=== PATIENT | female | born 1945 | race Caucasian/White ===

== ENCOUNTER 2017-02-24 00:11 | Inpatient (IN) | payer MEDICARE ==
[~2017-02-24] VITALS: Ht 160 cm; Wt 76.1 kg
[~2017-02-24 00:11] MED LIST: ACETAMINOPHEN500 M1 PO; ARTIFICIAL TEAR15 ML EACH EYE; CELEBREX200 MG PO; CLONAZEPAM2 MG/TAB OR; DEPAKOTE250 MG PO; ESGIC TABLET1 TAB OR; ESGIC TABLET1 TAB PO; HALCION0.25 MG; HYDROCODONE-APA1 TAB PO; KLONOPIN1 MG PO; LEXAPRO20 MG PO; LOVENOX40 MG/0.4 SQ; MULTIPLE VITAMI1 TA1 PO; MYRBETRIQ50 MG PO; NORCO 10/325 TA1 TA1 PO; NS 0.9% IV; PROTONIX40 MG PO; ROBAXIN500 MG OR; ROBAXIN500 MG PO; TOPAMAX100 MG PO; ULTRAM50 MG OR; ULTRAM50 MG PO; XALATAN 0.0052.5 ML EACH EYE; XANAX1 MG PO; ZITHROMAX250 MG PO; [UNRECOGNIZED DRUG - OTHER] IV
[2017-02-24 01:07] LABS: BASOPHILS 0 % (0-2); EOSINOPHILS 1.2 % (0-7); HEMATOCRIT 41.8 % (36.0-48.0); IMMATURE GRANULOCYTES 0.1 % (0-5); LYMPHOCYTES 7.7 % (15-50); MCHC 31.1 g/dL (31.0-37.0); MEAN PLATELET VOLUME 9.2 fL (7.4-10.4); MONOCYTES 5.5 % (2-11); NEUTROPHILS 85.5 % (40-80); RBC 4.06 10x6/uL (4.00-5.40); RDW 11.9 % (11.5-14.5); WBC 9.1 10x3/uL (4.8-10.8)
[2017-02-24 01:10] LABS: PLATELET COUNT 179 10x3/uL (130-400)
[2017-02-24 01:26] LABS: ANION GAP 13.9 mmol/L (8-16); BILIRUBIN - TOTAL 0.34 mg/dL (0.2-1.3); CALCIUM 9.1 mg/dL (8.5-10.1); CARBON DIOXIDE 29.2 mmol/L (21.0-32.0); CREATININE - SERUM 0.9 mg/dL (0.6-1.3); POTASSIUM - SERUM 4.1 mmol/L (3.5-5.1); PROTEIN - SERUM 7.4 g/dL (6.4-8.2)
[2017-02-24 01:54] LABS: APPEARANCE CLEAR (CLEAR); BILIRUBIN NEGATIVE (NEGATIVE); COLOR YELLOW (YELLOW); GLUCOSE 50 mg/dL (NEGATIVE); KETONE NEGATIVE (NEGATIVE); NITRITE NEGATIVE (NEGATIVE); PROTEIN TRACE mg/dL (NEGATIVE); SPECIFIC GRAVITY 1.015 (1.005-1.020); UROBILINOGEN NORMAL (NORMAL)
[2017-02-24 01:55] LABS: BACTERIA NONE SEEN /hpf (NONE SEEN); EPITHELIAL CELLS 0-5 /hpf (0-5); RED CELLS - URINE 0-5 /hpf (0-5); WHITE CELLS - URINE 0-5 /hpf (0-5)
--- NOTE | 2017-02-24 05:52 | NUR ---
SPOKE WITH Thotz IN REGARDS TO TELE ORDER. GIO STATED HE WILL CHECK WITH HIS CHARGE NURSE AND LET ME KNOW IF THEY HAVE ONE AVAILABLE
[2017-02-24 06:55] VITALS: BP 149/70; BMI 22.1
--- NOTE | 2017-02-24 08:17 | NUR ---
AWAKE AND ALERT. ORIENTED X3. NO C/O AT THIS TIME. LUNGS ARE CLEAR BILATERALLY, NO COUGH NOTED. SKIN IS INTACT WITHOUT REDNESS. SL TO LEFT WRIST IS PATENT WITHOUT REDNESS AT INSERTION SITE. NG TO LEFT NARE IS PATENT WITH SCANT GREENISH OUTPUT. AT BEDSIDE. DENIES NEEDS.
[2017-02-24 08:25] VITALS: BP 141/73
--- NOTE | 2017-02-24 09:30 | NUR ---
BOLUS INITIATED PER ORDERS. CRECHE ATTENDANT EXPLAINED TO BOTH PATIENT AND FAMILY. ALL QUESTIONS ANSWERED. REITERATED NOTHING BY MOUTH NOT EVEN ICE OR WATER.
[2017-02-24 10:16] LABS: APTT 20.5 SECONDS (22.8-39.4); INR 0.98 (0.85-1.17); PROTIME 12.9 SECONDS (11.6-15.0)
--- NOTE | 2017-02-24 11:20 | NUR ---
FOUND UNRESPONSIVE AND FEBRILE. FAMILY IN ROOM. DR STEWART NOTIFIED. NEW ORDERS RECEIVED. PATIENT PACKED IN ICE AND COVERS OFF.
--- NOTE | 2017-02-24 11:40 | NUR ---
DR. TORRES HERE. NEW ORDERS RECEIVED. PATIENT CONTINUES POST ICTAL. WILL CONTINUE TO MONITOR.
[2017-02-24 11:53] VITALS: BP 162/72
[2017-02-24 12:15] VITALS: Ht 160 cm; Wt 76.1 kg
--- NOTE | 2017-02-24 12:32 | NUR ---
TEMP 99.0 AT THIS TIME. INCONTINENT OF URINE. SKIN CARE PER FAMILY.
[2017-02-24 15:45] VITALS: BP 100/56
--- NOTE | 2017-02-24 17:21 | NUR ---
DR TORRES AWARE OF ELEVATED AMMONIA. NEW ORDERS TO REDRAW IN AM.
[2017-02-24 20:00] VITALS: BP 111/56
--- NOTE | 2017-02-24 23:48 | NUR ---
REC'D.AT [facility]. OF SHIFT.LYING ON RIGHT SIDE.NG TUBE IN PLACE TO LOW INTERMITT.DK. BROWNISH COLORED EMESIS,DENIES ANY PAIN AT PRESENT TIME.WILL CONTINUE TO MONITOR FOR ANY CHGES. IN ABD. STATUS AND FOWWLOW CURRENT ROB OF CARE.
[2017-02-25] VITALS: BP 110/62
[2017-02-25 05:10] LABS: BASOPHILS 0 % (0-2); EOSINOPHILS 0 % (0-7); HEMATOCRIT 33.6 % (36.0-48.0); HEMOGLOBIN 10.5 g/dL (12-16); IMMATURE GRANULOCYTES 0.2 % (0-5); LYMPHOCYTES 12.9 % (15-50); MCHC 31.3 g/dL (31.0-37.0); MCV 102.4 fL (80.0-100.0); MEAN PLATELET VOLUME 9.7 fL (7.4-10.4); MONOCYTES 3.2 % (2-11); NEUTROPHILS 83.7 % (40-80); RBC 3.28 10x6/uL (4.00-5.40); RDW 12.5 % (11.5-14.5)
[2017-02-25 05:17] LABS: PLATELET COUNT 119 10x3/uL (130-400); WBC 5.6 10x3/uL (4.8-10.8)
[2017-02-25 05:32] LABS: CALCIUM 7.7 mg/dL (8.5-10.1); CARBON DIOXIDE 22.7 mmol/L (21.0-32.0); CREATININE - SERUM 0.8 mg/dL (0.6-1.3); POTASSIUM - SERUM 3.7 mmol/L (3.5-5.1)
--- NOTE | 2017-02-25 08:06 | NUR ---
0700)ENTERED RM.NOTICED ROVING WINDER LOCKED OUT. ASKED SITTING AT BEDSIDE HAVE YOU BEEN PUSHING PAIN BUTTON? 'STATES MY DTR. SAYS PUSH IT EVERY TIME SHE HURTS. EXPLAINED SHE CAN GET INTO SOME SERIOUS RESP. ISSUES BY DOING THAT.STATES IF SHE HURTS I'M GONNA PUSH IT.15MIN. LATER RESP.ENTERED RM. FOR UPDRAFT.FOUND 02 OFF SATS 64%. 100% REBREATHER ON SAT% ONLY INCREASED TO 77%. RAPID RESPONSE CALLED.NARCAN GIVEN PER ROGERS AGUERO. SUCTIONED.ORALLY WITH PIYUSH.BED ELEVATED 40%.ROVING WINDER MORPHINE DISCONTINUED.WILL CONTINUE TO MONITOR FOR ANY CHGES. AND FOLLOW CURRENT PLAN OF CARE.
--- NOTE | 2017-02-25 08:30 | NUR ---
RECIEVED PT FROM FOUNDING PARTNER NURSE AT BEDSIDE AFTER RAPID RESPONSE CALLED DUE TO PT NOT RESPONDING. PT RESPONSIVE AND ALERT AT THIS TIME. ASSESSMENT DONE PER FLOWSHEET. BED IN LOW POSITION AND CALL LIGHT WITHIN REACH. WILL CONTINUE TO MONITOR.
--- NOTE | 2017-02-25 13:42 | NUR ---
Patient Name: KIMBERLEE EDMONDS Admission Status: ER Accout number: [id number] Admission Date: 02-24-2017 : 1945 Admission Diagnosis:ACUTE PANCREATITIS WITHOUT NECROSIS OR INFECTION, UNSP Attending: PLACIDO STEWART Current LOS: 1 Anticipated DC Date: 02-27-2017 Planned Disposition: Home Primary Insurance: [employer]ARE ADV Discharge Planning Comments: CM MET WITH PATIENT AND SPOUSE (PLACIDO EDMONDS) REGARDING D/C NEEDS AND PLANS. PATIENTS SPOUSE STATED HE WILL DRIVE PATIENT HOME AT DISCHARGE. THERE ARE 2 STEPS TO ENTER HOME AND 1 FLIGHT INSIDE. (PATIENT DOES NOT USE STAIRS) PATIENT USES A WALKER AND ALSO HAS A WHEELCHAIR, SHOWER CHAIR, BS COMMODE, AND CANE AT HOME. PATIENTS PCP IS DR. SEVILLA AND PAHRAMCY IS [place]ACH[place]ossein. SPOUSE STATED HOME HEALTH IS NOT NEEDED. CM WILL CONTINUE TO FOLLOW PATIENT WITH D/C NEEDS AND PLANS. PCP DR. SEVILLA [facility]- [phone] PLACIDO EDMONDS (SPOUSE) [phone] Social Security Specialist: Dinah Peña Is the patient Alert and Oriented? Yes 0 * How many steps to enter\exit or inside your home? 2 0 * PCP DR. SEVILLA 0 * [facility] * Preadmission Environment Home with Family 0 * ADLs Partial Dependent 0 * Partial ADLs (Assistance needed) Ambulation Medication Management Transfers 0 * Equipment Bedside Commode Cane Shower Chair Walker Wheelchair 0 * List name and contact numbers for known caregivers / representatives who currently or will assist patient after discharge: PLACIDO EDMONDS [phone] * Community resources currently utilized None 0 * Additional services required to return to the preadmission environment? Yes 0 * Can the patient safely return to the preadmission environment? Yes 0 * Has this patient been hospitalized within the prior 30 days at any hospital? No 0 Grand Total: 0
[2017-02-25 20:00] VITALS: BP 139/70
--- NOTE | 2017-02-25 23:06 | NUR ---
REC'D. AT [facility]. OF SHIFT.IN BED HOB UP 35 DEGREES.ON RIGHT SIDE. DTR. AT BEDSIDE REQUESTING MORPHINE DISCUSSED WITH DRT.MOTHER IS RESTING QUIETLY DOESN'T APPEAR TO BE IN ANY PAIN. STATES ONLY HAD SOME ONCE TODAY.DON'T YOU THINK SHE NEEDS SOME? INSTRUCTED NOT LONG SHE APPEARS TO BE RESTING COMFORTABLLY.INSTRUCTED DON'T WANT TO HAVE A REPEAT OF THIS MORNING.IF START TO APPEARS TO BE UNCOMFORTABLE WILL BE MORE THAN HAPPY TO GIVE HER SOMETHING VOICES UNDERSTANDINGSATS 91%. WILL CONTINUE TO MONITOR AND FOLLOW CURRENT PLAN OF CARE.
--- NOTE | 2017-02-25 23:53 | NUR ---
EYES CLOSED RESPIRATIONS WITH EASE AND UNLABORED.
[2017-02-26] VITALS (18 sets, daily range): BP systolic 96–185; BP diastolic 69–98
[2017-02-26 05:16] LABS: BASOPHILS 0 % (0-2); EOSINOPHILS 0 % (0-7); HEMATOCRIT 32.1 % (36.0-48.0); HEMOGLOBIN 10.2 g/dL (12-16); IMMATURE GRANULOCYTES 0.5 % (0-5); LYMPHOCYTES 10.5 % (15-50); MCHC 31.8 g/dL (31.0-37.0); MCV 100.6 fL (80.0-100.0); MONOCYTES 4.7 % (2-11); NEUTROPHILS 84.3 % (40-80); PLATELET COUNT 120 10x3/uL (130-400); RBC 3.19 10x6/uL (4.00-5.40); RDW 12.4 % (11.5-14.5); WBC 5.5 10x3/uL (4.8-10.8)
[2017-02-26 05:38] LABS: ALBUMIN 2.4 g/dL (3.4-5.0); ANION GAP 12.7 mmol/L (8-16); BILIRUBIN - TOTAL 0.69 mg/dL (0.2-1.3); CALCIUM 7.4 mg/dL (8.5-10.1); CARBON DIOXIDE 23.6 mmol/L (21.0-32.0); CREATININE - SERUM 0.8 mg/dL (0.6-1.3); MAGNESIUM - SERUM 2.1 mg/dL (1.8-2.4); POTASSIUM - SERUM 3.3 mmol/L (3.5-5.1); PROTEIN - SERUM 5.7 g/dL (6.4-8.2)
--- NOTE | 2017-02-26 08:56 | NUR ---
AWAKE AND ALERT. ORIENTED X3. RESPONDS APPROPRIATELY TO YES/NO QUESTIONS. LUNGS ARE CLEAR BILATERALLY, NO COUGH NOTED. SKIN IS INTACT WITHOUT REDNESS.INCONTINENT OF LOOSE WATERY LIGHT BROWN STOOL. SKIN CARE PER STAFF. .LINENS CHANGED. REPOSITIONED FOR COMFORT. NG TO LEFT NARE D/C WITHOUT DIFFICULTY. FL DIET TRAY SERVED. IV TO LEFT FOREARM PATENT WITHOUT REDNESS AT INSERTION SITE. DENIES NEEDS.
--- NOTE | 2017-02-26 10:00 | NUR ---
UNABLE TO MAINTAIN SATS MORE THAN 92%. AT 82% ON NONREBREATHER. ORDERS TO TRANSFER TO ICU RECEIVED. REPORT CALLED TO CATHERINE AGUERO. PATIENT TRANSFERRED VIA BED TO ROOM 2303. FAMILY AT BEDSIDE.
--- NOTE | 2017-02-26 10:08 | NUR ---
Rehab Note- Acute Prescreen order received. The patient has [employer] Insurance and will require a PreAuth prior to an inpatient acute rehab stay. Will need an OT eval also for PreAuth. Will also see if the patient is able to participate with PT. Will follow at this time. Thank you for this referral! Gloria iSmeon RN Clinical Liaison, [facility] Rehab
[2017-02-26 10:25] LABS: VALPROIC ACID (DEPAKOTE) 50.2 ug/mL (50.0-100.0)
--- NOTE | 2017-02-26 10:37 | NUR ---
1010 PT RECIEVED FROM FLOOR VIA BED.. PT IS AWAKE BUT DOES NOT RESPOND APPROPRIATLY TO COMMANDS OR QUESTIONS.. 100% NON REBREATHER O2 DELIVERY ON PT ON ARRIVAL AND PT IS TRYING TO TAKE MASK OFF.. RESPIRATORY THERAPY AT BEDSIDE.. PT HAS HAD A LIQUID SERVIN BROWN BM IN CONTINTENET IN THE BED.. PT CLEANED AT THIS TIME.. THERE IS A PIV IN THE LET WRIST WITH NS INFUSING PLACED ON IVAC AT 125 CC/HR 1030 FAMILY IN TO SEE PT UPDATE GIVEN DR GARCIA IN UNIT AND PT IS PLACED ON BIPAP O2 AT 60% RESPIRATIONS ARE 60 O2SAT IS 92% 1040 DR TORRES IN TO SEE PT AND SPEAKING WITH DR GARCIA AT THE BEDSIDE.. 10[address] GARCIA IS ORDERING LASIX.. 1100 LAB IN TO DRAW BLOOD..
--- NOTE | 2017-02-26 10:44 | NUR ---
NUTRITION F/U CHART REVIEWED. PT MOVED TO ICU S/P RR. FULL LIQUID DIET STARTED. WILL CONTINUE TO MONITOR PT PROGRESS, DIET ADVANCEMENT. RD FOLLOWING
--- NOTE | 2017-02-26 10:57 | NUR ---
1045 IV FLUID IN FUSING AT 125CC/HR ON ARRIVAL RATE CHANGED TO 50CC AT THIS TIME..
[2017-02-26 11:45] LABS: CREATINE KINASE 227 UL (21-215)
[2017-02-26 11:47] LABS: TROPONIN-I 0.597 ng/mL (0.000-0.060)
[2017-02-26 11:49] LABS: CKMB 3.2 U/L (0.0-3.6)
--- NOTE | 2017-02-26 18:08 | NUR ---
1115 PTS FAMILY IN TO SEE PT.. UPDATE IS GIVEN PT CONTINUES OBTUNDED AND POLACED ON BIPAP O2 AT THIS TIME SHE CONTINUES TO BREATH 50-60 BPM.. SAT IS BETTER ON BIPAP O2 .. 1200 FAMILY AT THE PT BEDSIDE PT IS HAVING INCONTINENT STOOLS LIQUID SERVIN COLORED FAMILY STATES THAT SHE HAS BEEN TAKING LACTULOSE.. PT IS NOT APPROPRIATE IN RESPONSES TO COMMANDS... 1400 NO CHANGES IN PT AT THIS TIME.. 1600 FAMILY IN TO SEE PT.. UPDATE GIVEN.. 1700 INCONTINENT OF STOOL.. PT CLEANED AND BUTT BALM APPLIED 1800 FAMILY GONE FROM THE BEDSIDE
--- NOTE | 2017-02-26 19:00 | NUR ---
REPORT REC'D, PATIENT CARE ASSUMED. ASSESSMENT COMPLETED. SEE FLOW SHEETS FOR ALL FINDINGS. PT ON BIPAP AWAKE, NODES HEAD FOR YES/NO QUESTIONS, RESTLESS, TRYING TO PULL OFF BIPAP. REORIENTED AND EXPLAINED THE NEED TO KEEP ON THE MASK. RR TO 50. RT AT BEDSIDE. BIPAP MASK REAJUSTED.SR ON CM. LUNG SOUNDS DININISHED TO ALL VELA. REPOSITIONED FOR COMFORT. HOB UP, SIDE RAILS UP. WILL CONT TO MONITOR.
--- NOTE | 2017-02-26 21:00 | NUR ---
FAMILY AT BEDSIDE, UPDATED AND QUESTIONS ANSWERED.
--- NOTE | 2017-02-26 23:00 | NUR ---
REASSESSMENT COMPLETED. SEE FLOW SHEETS FOR ALL FINDINGS. PT AWAKE EASILY WITH VOICES, NODES HEAD FOR YES/NO QUESTIONS. CONT ON BIPAP. REORIENTED. CONT TO MONITOR.
[2017-02-27] VITALS (24 sets, daily range): BP systolic 133–173; BP diastolic 68–101
--- NOTE | 2017-02-27 01:00 | NUR ---
PT RESTING QUIETLY. NO NEEDS VOICES AT THIS TIME. CALL LIGHT IN REACH. CPOC
[2017-02-27 06:12] LABS: BASOPHILS 0.1 % (0-2); EOSINOPHILS 0 % (0-7); HEMATOCRIT 34.3 % (36.0-48.0); HEMOGLOBIN 10.7 g/dL (12-16); IMMATURE GRANULOCYTES 0.3 % (0-5); LYMPHOCYTES 4.9 % (15-50); MCH 31.2 pg (26.0-34.0); MCHC 31.2 g/dL (31.0-37.0); MEAN PLATELET VOLUME 10.1 fL (7.4-10.4); MONOCYTES 4.6 % (2-11); NEUTROPHILS 90.1 % (40-80); RBC 3.43 10x6/uL (4.00-5.40); RDW 12.3 % (11.5-14.5)
[2017-02-27 06:16] LABS: PLATELET COUNT 155 10x3/uL (130-400)
[2017-02-27 06:37] LABS: ALBUMIN 2.3 g/dL (3.4-5.0); BILIRUBIN - TOTAL 0.83 mg/dL (0.2-1.3); CALCIUM 8.7 mg/dL (8.5-10.1); CARBON DIOXIDE 26.2 mmol/L (21.0-32.0); CREATININE - SERUM 0.9 mg/dL (0.6-1.3); MAGNESIUM - SERUM 2.5 mg/dL (1.8-2.4); PROTEIN - SERUM 6.1 g/dL (6.4-8.2)
[2017-02-27 06:50] LABS: POTASSIUM - SERUM 2.2 mmol/L (3.5-5.1)
--- NOTE | 2017-02-27 10:35 | CN ---
PATIENT NAME:KIMBERLEE REARDON MEDICAL RECORD: [id number] : 43 LOCATION:[id number] ADMIT DATE: 02/24/17 ACCOUNT: [id number] CONSULTING PHYSICIAN: VILMA GARCIA MD REFERRING PHYSICIAN: PLACIDO STEWART MD DATE OF CONSULTATION: 02/26/2017 CONSULT REQUESTING PHYSICIAN: Diana Torres MD. REASON FOR CONSULTATION: Acute hypoxic respiratory failure. HISTORY OF PRESENT ILLNESS: Ms. Reardon is a 71-year-old female. She was admitted on 02/24/2017 with acute pancreatitis, small-bowel obstruction, nausea and vomiting. This morning, rapid response was called; however, the patient was hypoxic and required 15 liter oxymizer. Now, she is awake and alert, but the patient is noncommunicative because of the shortness of breath. The patient also having history of absence seizures. REVIEW OF SYSTEMS: Mainly in the history of present illness. PAST MEDICAL HISTORY: 1. Seizure disorder. 2. Depression. 3. History of breast cancer. PAST SURGICAL HISTORY: 1. Bilateral mastectomy. 2. Cholecystectomy. 3. Hysterectomy. ALLERGIES: SHE IS ALLERGIC TO IV CONTRAST. PRESENT MEDICATIONS: [employer] was reviewed. PERSONAL AND SOCIAL HISTORY: The patient is a nonsmoker, nondrinker. FAMILY HISTORY: Noncontributory. PHYSICAL EXAMINATION: GENERAL: Now, the patient is lying comfortably. She is in acute respiratory distress. VITAL SIGNS: The blood pressure is 158/98, pulse is 90, respiration is 23-54. SpO2 is 94% on 100% nonrebreather. HEENT: Conjunctivae are pink. Sclerae nonicteric. NECK: Supple, no JVD. CHEST: There are bilateral crackles. No wheezing. HEART: Rhythm regular, normal sound, no murmur. ABDOMEN: Soft. Bowel sounds are muffled. RECTAL: Deferred. EXTREMITIES: No cyanosis, no clubbing, no pedal edema. SKIN: Warm, normal turgor. CENTRAL NERVOUS SYSTEM: The patient is awake and alert. There are no obvious cranial nerve abnormality. LABORATORY DATA: Bilateral infiltrate. CBC: WBC 5.5, hemoglobin 10.2, CONSULT REPORT [id number] KIMBERLEE REARDON hematocrit 31.1, the platelet count 120. Chemistry: Sodium 145, potassium 3.3, BUN is 26, creatinine 0.8, glucose 115, magnesium 2.1. AST is 56, ALT is 142, alkaline phosphatase is 29. The proBNP is 12,274. Lipase is 76, on admission it was 1892. IMPRESSION: 1. Acute hypoxic respiratory failure secondary to bilateral pneumonia, possible aspiration with associated nausea and vomiting. 2. Acute lung injury, possible acute respiratory distress syndrome. 3. Pulmonary edema with elevated proBNP. 4. Congestive heart failure, possible fluid overload. 5. Acute pancreatitis, improving. 6. Elevated liver enzymes. 7. Small-bowel obstruction with ileus. 8. History of seizure disorder. RECOMMENDATION: 1. Lasix 40 mg IV times 1. 2. Start her on BiPAP. 3. Check the cardiac echo. 4. Continue meropenem. I will add vancomycin IV. 5. Follow up labs and chest radiograph. 6. Albuterol ipratropium nebulizer p.r.n. 7. I will doubt PE. Dr. Torres thank you for involving me in the care of Ms. Reardon. The critical care time is 45 minutes. TRANSINT:[id number] Voice Confirmation ID: [id number] DOCUMENT ID: [id number] IVLMA GARCIA MD at 1035 CC: DIANA TORRES DO [id number] DICTATION DATE: 02/26/17 1113 SHOWER ROOM ATTENDANT: 02/26/17 1141 ADM IN [place] [id number] [place] [address]
--- NOTE | 2017-02-27 19:00 | NUR ---
REPORT RECIEVED, SHIFT ASSESSMENT COMPLETE, PLEASE SEE FLOW SHEETS FOR DETAILS. A&O X4 THOUGH DID NOT KNOW WHY SHE WAS HERE. PUPILS 4MM AND REACTIVE/BRISK. LUNGS CLEAR IN UPPER LOBES, DIMINISHED IN LOWER LOBES. ON BIPAP @ 50%, SPO2 96%. S1S2 HEARD, SINUS TACH NOTED ON MONITOR AT RATE OF 112/MIN. PPP. CAP REFIL <3 SEC.. BS ACTIVE X4. DISTENTION AND TENDERNESS NOTED. NO REPORTED BM TODAY. YATES IN PLACE AND DRAINING VIA GRAVITY. YELLOW URINE NOTED. BED LOW AND LOCKED, CALL LIGHT IN REACH. WILL CPOC.
--- NOTE | 2017-02-27 21:00 | NUR ---
C/O PAIN 10/10 IN HEAD AND FEET, WILL GIVE PRN MORPHINE PER ORDERS. ASSESED PIV SITE IN LEFT HAND/WRIST, TENDER AND REDNESS NOTED. STOPPED IV FLUIDS AND WILL RESITE TO TWO SEPARATE IV'S FOR PROCALAMINE AND OTHER IVF'S TO RUN IN THE OTHER. BRIDGED HEELS AND PULLED UP IN BED. PT ASKED FOR ICE CHIPS, PROVIDED AND OBSERVED AND PT DID NOT TOLERATE WELL, COUGHING AND SPO2 DROP NOTED. BED LOW AND LOCKED, CALL LIGHT IN REACH. WILL CPOC.
--- NOTE | 2017-02-27 23:00 | NUR ---
REASSESSMENT COMPLETE, PLEASE SEE FLOW SHEETS FOR DETAILS. NO MAGOR CHANGES TO NOTE. PIV TAKEN OUT AND 5 ATTEMPTS TO START A NEW ONE, WILL CALL CARE PARTNER MD FOR INSTRUCTIONS, PT MAY NEED A CENTRAL LINE OR PICC LINE. PT WAS INFORMED THAT SHE MAY NEED ONE AND ASKED THAT WE WAIT UNTIL THE MORNING BECAUSE SHE WAS TIRED, TOLD HER I WOULD LET HER KNOW WHAT HER DOCTOR SAYS. VSS ATT, BED LOW AND LOCKED, CALL LIGHT IN REACH. WILL CPOC.
--- NOTE | 2017-02-27 23:47 | NUR ---
SPOKE TO DR SMITH ABOUT IV SITUATION, HE SAID HE WOULD PUT IN A LARGE BORE IV OF SOME SORT WHEN HE CAME IN, IN THE MORNING, POSSIBLE CENTRAL LINE.
[2017-02-28] VITALS (23 sets, daily range): BP systolic 150–182; BP diastolic 64–132
[2017-02-28 05:13] LABS: BASOPHILS 0.3 % (0-2); EOSINOPHILS 0.1 % (0-7); HEMATOCRIT 34.2 % (36.0-48.0); HEMOGLOBIN 11.1 g/dL (12-16); LYMPHOCYTES 4.7 % (15-50); MCH 31.4 pg (26.0-34.0); MCHC 32.5 g/dL (31.0-37.0); MEAN PLATELET VOLUME 11.4 fL (7.4-10.4); MONOCYTES 3.5 % (2-11); NEUTROPHILS 90.4 % (40-80); PLATELET COUNT 148 10x3/uL (130-400); RBC 3.54 10x6/uL (4.00-5.40); RDW 12.4 % (11.5-14.5); WBC 9.7 10x3/uL (4.8-10.8)
[2017-02-28 05:19] LABS: MCV 96.6 fL (80.0-100.0)
[2017-02-28 05:21] LABS: ALBUMIN 2.3 g/dL (3.4-5.0); ALKALINE PHOSPHATASE 27 U/L (46-116); BILIRUBIN - TOTAL 0.72 mg/dL (0.2-1.3); CALC OSMOLALITY 302 mosm/kg (275-300); CALCIUM 8.7 mg/dL (8.5-10.1); CARBON DIOXIDE 25.6 mmol/L (21.0-32.0); CHLORIDE - SERUM 109 mmol/L (98-107); GLUCOSE 109 mg/dL (74-106); LIPASE 1024 U/L (73-393); MAGNESIUM - SERUM 2.4 mg/dL (1.8-2.4); PROTEIN - SERUM 5.6 g/dL (6.4-8.2); SODIUM 149 mmol/L (136-145); UREA NITROGEN 29 mg/dL (7-18)
[2017-02-28 05:26] LABS: CREATININE - SERUM 0.5 mg/dL (0.6-1.3); eGFR NON AFRICAN AMERICAN > 90 mL/min (90-120)
[2017-02-28 05:27] LABS: ALT (SGPT) 76 U/L (10-68); POTASSIUM - SERUM 2.7 mmol/L (3.5-5.1)
--- NOTE | 2017-02-28 06:46 | NUR ---
0100 - RESTING, VSS, BED LOW AND LOCKED, CALL LIGHT IN REACH. NO S&S OF ACUTE DISTRESS NOTED. 0300 - REASSESSMENT COMPLETE, PLEASE SEE FLOW SHEETS FOR DETAILS. NO CHANGES TO NOTE. VSS, BED LOW AND LOCKED, CALL LIGHT IN REACH. 0445 - DAUGHTER IN ROOM, STATED PT HAD BM. FULL BED BATH AND LINEN CHANGE PROVIDED. VSS, BED LOW AND LOCKED, CALL LIGHT IN REACH. 0530 - RESTING, NO S&S OF DISTRESS. VSS. BED LOW AND LOCKED, CALL LIGHT IN REACH. WILL CPOC.
--- NOTE | 2017-02-28 07:00 | NUR ---
REC'D CARE OF PT. ON BIPAP. NO IV ACCESS. WAITING ON DR. SMITH TO INPUT LINE.
--- NOTE | 2017-02-28 08:42 | NUR ---
INCONTINENT OF STOOL. BATHED AND LINEN CHANGED. HAD LARGE SEMIFORMED GREEN STOOL. PERICARE PERFORMED.
--- NOTE | 2017-02-28 10:07 | NUR ---
INCONTENENT OF STOOL. BATHED AND PERICARE PERFORMED.
--- NOTE | 2017-02-28 12:03 | NUR ---
REASSESSMENT COMPLETED PER FLOW SHEET. NO ACUTE CHANGES.
--- NOTE | 2017-02-28 13:30 | NUR ---
ASSUMED CARE FROM DEBORA AGUERO
--- NOTE | 2017-02-28 13:36 | NUR ---
REPORT GAVE TO JULIA BAKER RN AND LAWRENCE BARRETT CARE
--- NOTE | 2017-02-28 19:30 | NUR ---
ASSESSMENT COMPLETE. S1S2. SINUS TACHYCARDIA SHOWING ON MONITOR. BIPAP IN PLACE; TACHYPNEA NOTED. RR CLEAR BILATERALLY IN UPPER LOBES; CRACKLES NOTED IN MID LOBES; AND DIMINISHED BILATERALLY IN LOWER LOBES. PT CONFUSED; PULLING AT BIPAP; REFUSES TO WEAR IT; ATTEMPTED OXYMIZER; PULLED OXYMIZER OFF WELL. BIPAP BACK IN PLACE. LEFT SUBCLAVIAN CVL; PATENT. RADIAL AND PEDAL PULSES PALPATED.
--- NOTE | 2017-02-28 20:30 | NUR ---
FAMILY AT BEDSIDE. UPDATE GIVEN. QUESTIONS ANSWERED.
--- NOTE | 2017-02-28 21:45 | NUR ---
PT CONTINUES TO PULL OFF BIPAP FREQUENTLY. MULTIPLE TRIPS TO ROOM TO REORIENT AND REAPPLY BIPAP. EDUCATION UNSUCCESSFUL.
--- NOTE | 2017-02-28 23:00 | NUR ---
PT PLACED IN RESTRAINTS; CONTINUES TO PULL OF BIPAP; TACHYPNEA NOTED. O2 SAT DROPS WITH REMOVAL. PT CONFUSED; PULLING AT LINES.
--- NOTE | 2017-02-28 23:30 | NUR ---
REASSESSMENT COMPLETE. NO ACUTE CHANGES FROM PREVIOUS ASSESSMENT. RESTRAINTS IN PLACE. WILL CONTINUE TO MONITOR.
[2017-03-01] VITALS (25 sets, daily range): BP systolic 107–177; BP diastolic 47–111
--- NOTE | 2017-03-01 01:00 | NUR ---
PT AWAKE; CONFUSED. TACHYPNEA NOTED. MONITORING CLOSELY.
--- NOTE | 2017-03-01 03:10 | NUR ---
REASSESSMENT COMPLETE; NO ACUTE CHANGES FROM PREVIOUS ASSESSMENT. SEE FLOW SHEET FOR DETAILS.
--- NOTE | 2017-03-01 04:20 | NUR ---
PT PLACED ON 15L OXYMIZER; BREAK FROM BIPAP. ATTEMPT RELEASE OF RESTRAINTS; PT IMMEDIATELY ATTEMPTING TO REMOVE BP CUFF; SCDS; AND NC.
[2017-03-01 05:08] LABS: BASOPHILS 0.1 % (0-2); EOSINOPHILS 0 % (0-7); HEMATOCRIT 35.5 % (36.0-48.0); HEMOGLOBIN 11.3 g/dL (12-16); IMMATURE GRANULOCYTES 1.2 % (0-5); LYMPHOCYTES 6.6 % (15-50); MCH 31.1 pg (26.0-34.0); MCHC 31.8 g/dL (31.0-37.0); MCV 97.8 fL (80.0-100.0); MEAN PLATELET VOLUME 9.8 fL (7.4-10.4); MONOCYTES 4.9 % (2-11); NEUTROPHILS 87.2 % (40-80); RBC 3.63 10x6/uL (4.00-5.40); RDW 12.5 % (11.5-14.5); WBC 9.3 10x3/uL (4.8-10.8)
[2017-03-01 05:12] LABS: PLATELET COUNT 194 10x3/uL (130-400)
--- NOTE | 2017-03-01 05:15 | NUR ---
FAMILY AT BEDSIDE; POA. UPDATE GIVEN. QUESTIONS ANSWERED. CONCERNS NOTED ABOUT NUTRITION AND WHEN PT CAN EAT AND DRINK.
[2017-03-01 05:29] LABS: ALBUMIN 2.3 g/dL (3.4-5.0); ALKALINE PHOSPHATASE 25 U/L (46-116); BILIRUBIN - TOTAL 0.67 mg/dL (0.2-1.3); CALC OSMOLALITY 311 mosm/kg (275-300); CALCIUM 9.2 mg/dL (8.5-10.1); CARBON DIOXIDE 31.5 mmol/L (21.0-32.0); CHLORIDE - SERUM 111 mmol/L (98-107); GLUCOSE 126 mg/dL (74-106); LIPASE 1185 U/L (73-393); MAGNESIUM - SERUM 2.4 mg/dL (1.8-2.4); PROTEIN - SERUM 6.2 g/dL (6.4-8.2); SODIUM 153 mmol/L (136-145); UREA NITROGEN 28 mg/dL (7-18)
[2017-03-01 05:46] LABS: CREATININE - SERUM 0.7 mg/dL (0.6-1.3); eGFR NON AFRICAN AMERICAN 87 mL/min (90-120)
[2017-03-01 05:47] LABS: ALT (SGPT) 56 U/L (10-68); POTASSIUM - SERUM 2.2 mmol/L (3.5-5.1)
--- NOTE | 2017-03-01 06:01 | NUR ---
PT CLEANED. COMPLETE LINEN CHANGE.
--- NOTE | 2017-03-01 06:03 | NUR ---
YATES LEAKING; CHECKED BULB; 8ML IN BULB; ADDED 2ML. LINENS CHANGED.
--- NOTE | 2017-03-01 15:15 | NUR ---
REC'D TO ROOM 2307 FROM [facility] VIA SURVIVAL FLIGHT. TRANSFERRED TO ICU BED BY T[employer]IFT AND CONNECTED TO MONITOR AND VS OBTAINED. SEE FLOWSHEET FOR COMPLETE ASSESSMENT.
--- NOTE | 2017-03-01 19:30 | NUR ---
ASSESSMENT COMPLETE. S1S2. SINUS TACHYCARDIA SHOWING ON MONITOR. TACHYPNEA NOTED; SHALLOW RR. OXYMIZER @ 15L. O2 SAT 93%. LEFT SUBCLAVIAN CVL; PATENT. RADIAL AND PEDAL PULSES PALPATED. CONFUSED. RESTLESS. PULLING AT YATES CATH; REORIENTED. MAKES CHANGES IN POSITION INDEPENDENTLY. DYSPNEA ON EXERTION NOTED.
--- NOTE | 2017-03-01 22:00 | NUR ---
NO FAMILY OR VISITORS DURING VISITATION.
--- NOTE | 2017-03-01 22:28 | NUR ---
ATTEMPTING TO GET OUT OF BED; TOOK OFF SCDS; BROKE STAT LOCK. OXYMIZER IN PLACE
--- NOTE | 2017-03-01 23:10 | NUR ---
REASSESSMENT COMPLETE. NO ACUTE CHANGES FROM PREVIOUS ASSESSMENT. VSS. NO DISTRESS NOTED. WILL CONTINUE TO MONITOR.
[2017-03-02] VITALS (21 sets, daily range): BP systolic 97–179; BP diastolic 51–95
--- NOTE | 2017-03-02 01:30 | NUR ---
PT AWAKE AND ALERT. BANGING CALL LIGHT AGAINST BED RAIL. REORIENTED PT.
--- NOTE | 2017-03-02 03:00 | NUR ---
REASSESSMENT COMPLETE. NO ACUTE CHANGES FROM PREVIOUS ASSESSMENT.
[2017-03-02 04:12] LABS: BASOPHILS 0.2 % (0-2); EOSINOPHILS 0.2 % (0-7); HEMATOCRIT 35.9 % (36.0-48.0); HEMOGLOBIN 11.3 g/dL (12-16); IMMATURE GRANULOCYTES 1.3 % (0-5); LYMPHOCYTES 11.9 % (15-50); MCHC 31.5 g/dL (31.0-37.0); MCV 98.4 fL (80.0-100.0); MEAN PLATELET VOLUME 9.6 fL (7.4-10.4); MONOCYTES 4.7 % (2-11); NEUTROPHILS 81.7 % (40-80); PLATELET COUNT 205 10x3/uL (130-400); RBC 3.65 10x6/uL (4.00-5.40); RDW 13.1 % (11.5-14.5); WBC 9.8 10x3/uL (4.8-10.8)
[2017-03-02 04:23] LABS: ALBUMIN 2.2 g/dL (3.4-5.0); ALKALINE PHOSPHATASE 26 U/L (46-116); ALT (SGPT) 43 U/L (10-68); BILIRUBIN - TOTAL 0.55 mg/dL (0.2-1.3); CALC OSMOLALITY 313 mosm/kg (275-300); CARBON DIOXIDE 34.5 mmol/L (21.0-32.0); CHLORIDE - SERUM 112 mmol/L (98-107); CREATININE - SERUM 0.7 mg/dL (0.6-1.3); GLUCOSE 129 mg/dL (74-106); MAGNESIUM - SERUM 2.4 mg/dL (1.8-2.4); SODIUM 153 mmol/L (136-145); UREA NITROGEN 34 mg/dL (7-18); eGFR NON AFRICAN AMERICAN 87 mL/min (90-120)
[2017-03-02 04:44] LABS: POTASSIUM - SERUM 3.6 mmol/L (3.5-5.1)
--- NOTE | 2017-03-02 05:45 | NUR ---
PT HAD LARGE BM; CLEANED. COMPLETE LINEN CHANGE. STOOL SAMPLE SENT FOR CDIFF TESTING.
--- NOTE | 2017-03-02 06:00 | NUR ---
NO FAMILY DURING VISITATION.
[2017-03-02 09:43] LABS: AMYLASE - SERUM 259 U/L (25-115); LIPASE 1922 U/L (73-393)
--- NOTE | 2017-03-02 10:00 | NUR ---
Nutrition follow-up: Pt receiving a full liquid diet. Labs reviewed ProcalAmine infusing @ 50 ml/hr Wt: 125# -> down 5# from admit Pt c/o abdominal pain +BM RDN will order Ensure with full liquid meals. Following.
--- NOTE | 2017-03-02 10:45 | NUR ---
AILEEN FROM OCCUPATIONAL THERAPY IS HERE IN TO SEE PATIENT FOR SWALLOW STUDY.
[2017-03-02 11:46] LABS: VANCOMYCIN - TROUGH 17.7 ug/mL (10.0-20.0)
[2017-03-02 11:50] LABS: POTASSIUM - SERUM 2.6 mmol/L (3.5-5.1)
--- NOTE | 2017-03-02 13:57 | NUR ---
PATIENT USING BEDPAN. CALL LIGHT WITHIN REACH, AND BED IN LOW POSITION.
--- NOTE | 2017-03-02 14:47 | NUR ---
CALLED PHARMACY ABOUT DEPACON THAT IS DUE AT 1415, PHARMACY STATED THAT THEY WERE PREPARING IT AT THIS TIME.
--- NOTE | 2017-03-02 17:12 | NUR ---
DR. STEWART HERE IN ROOM TO SEE PATIENT.
--- NOTE | 2017-03-02 19:45 | NUR ---
SHIFT ASSESSMENT COMPLETE. PT IS A&O X4 AND DENIES ANY PAIN AT THIS TIME. OXIMIZER @ 11 L/MIN O2 SAT 90%. S1S2 AUDIBLE, HR 107 SINUS TACH VIA TELEMETRY. RR SHALLOW AND TACHYPNEA, CLEAR LUNG SOUNDS THROUGHOUT ALL LOBES. ABD IS FLAT AND NON TENDER TO TOUCH. BS ACTIVE X4. YATES CATH INTACT DRAINING CLEAR YELLOW URINE. SCD'S REMOVED AND SKIN ASSESSED, WNL. B/L ARMS HAVE BRUISING NOTED. BED ALARM ON, SLIPPER SOCKS ON, BED IN LOWEST POSITION. CALL LIGHT IN REACH. WILL CONT WITH POC.
--- NOTE | 2017-03-02 21:20 | NUR ---
COMPLETE LINEN CHANGE. MEDIUM SIZE BM, GREEN/BROWN/MUCOUS LIKE. SHE WAS ABLE TO ROLL HERSELF WITH NO ISSUES. LT SUBCLAVIAN INFUSING PROCAL @ 50 VIA DISTAL PORT AND 1/2 NS WITH 20 K @ 75 ML/HR VIA MEDIAL PORT. WILL CONT WITH POC. VSS.
--- NOTE | 2017-03-02 23:30 | NUR ---
REASSESSMENT COMPLETE. PT IS SLIGHTLY CONFUSED TO PLACE. SHE STATES THAT SHE BELIEVES THAT SHE IS IN HER HOME. REORIENTED EASILY. ANOTHER MEDIUM SIZE BM, GREEN/BROWN/MUCOUS LIKE. COMPLETE LINEN CHANGE. REFILLED REFRESHMENTS. NO FURTHER NEEDS AT THIS TIME. BED ALARM ON, BED IN LOWEST POSITION, CALL LIGHT IN REACH. WILL CONT TO MONITOR.
[2017-03-03] VITALS (25 sets, daily range): BP systolic 96–162; BP diastolic 56–123
--- NOTE | 2017-03-03 01:15 | NUR ---
PARTIAL LINEN CHANGE. SMALL MUCOUS/GREEN/BROWN BM. WILL CONT WITH POC.
--- NOTE | 2017-03-03 03:00 | NUR ---
REASSESSMENT COMPLETE. PT IS COMPLAINING ABOUT THE BIPAP AND DEMANDS TO HAVE IT OFF. OXIMIZER ON AT 15 L/MIN. VSS. NO FURTHER NEEDS AT THIS TIME. REFILLED REFRESHMENTS. BED IN LOWEST POSITION. WILL CONT TO MONITOR.
--- NOTE | 2017-03-03 05:00 | NUR ---
DAUGHTER AT BEDSIDE. UPDATED HER ON PT'S CONDITION. SHE SEEMS MORE ALERT WHEN DAUGHTER IS PRESENT. WILL CONT WITH POC.
[2017-03-03 05:09] LABS: BASOPHILS 0.1 % (0-2); EOSINOPHILS 1.3 % (0-7); HEMATOCRIT 35.5 % (36.0-48.0); IMMATURE GRANULOCYTES 1.1 % (0-5); LYMPHOCYTES 8.9 % (15-50); MCH 30.8 pg (26.0-34.0); MCV 99.4 fL (80.0-100.0); MEAN PLATELET VOLUME 9.8 fL (7.4-10.4); MONOCYTES 4.3 % (2-11); NEUTROPHILS 84.3 % (40-80); PLATELET COUNT 224 10x3/uL (130-400); RBC 3.57 10x6/uL (4.00-5.40); RDW 13.1 % (11.5-14.5)
[2017-03-03 05:22] LABS: ALBUMIN 1.8 g/dL (3.4-5.0); ANION GAP 7.7 mmol/L (8-16); BILIRUBIN - TOTAL 0.45 mg/dL (0.2-1.3); CARBON DIOXIDE 32.7 mmol/L (21.0-32.0); CREATININE - SERUM 0.8 mg/dL (0.6-1.3); MAGNESIUM - SERUM 2.1 mg/dL (1.8-2.4); PHOSPHOROUS 1.8 mg/dL (2.5-4.9); POTASSIUM - SERUM 3.4 mmol/L (3.5-5.1); PROTEIN - SERUM 5.4 g/dL (6.4-8.2)
--- NOTE | 2017-03-03 07:00 | NUR ---
TICO'D REPORT AND RESUMED CARE, AWAKE AND CONFUSED, O2 VIQ OXYMIZER, SAT 92%, LEFT TL SC WITH PROCAL INFUSING AT 50 CC/HR, 1/2 NS WITH 20 KCL AT 75 CC/HR, YATES TO GRAVITY WITH CONCENTRATED YELLOW DRAINAGE TO BAG, SCD'S B/L, ASSESSMENT COMPLETE PER FLOWSHEET, PLACED ON BEDPAN PER REQUEST, CALL LIGHT IN REACH, VOICES NO NEEDS AT THIS TIME
--- NOTE | 2017-03-03 07:45 | NUR ---
BREAKFAST TRAY TO BEDSIDE, ASSIST WITH SET UP AND EATING, THICKENED LIQUIDS IN USE, TOLERATED WITHOUT DIFFICULTY
--- NOTE | 2017-03-03 08:00 | NUR ---
FAMILY AT BEDSIDE, STATUS UPDATED, VOICES NO NEEDS AT THIS TIME
--- NOTE | 2017-03-03 09:15 | NUR ---
AM MEDS GIVEN WITHOUT DIFFICULTY
--- NOTE | 2017-03-03 09:33 | NUR ---
NUTRITION F/U CHART REVIEWED, PT RESTING. CHANGED DIET TO VEGETARIAN/NECTAR LIQUIDS. CURRENTLY RECEIVING PROCALAMINE @ 50 CC/HR PROVIDING 294 KCAL, [address] DAY. RD FOLLOWING
--- NOTE | 2017-03-03 11:00 | NUR ---
NO ACUTE CHANGE FROM PREVIOUS ASSESSMENT, VSS, DENIES PAIN, REPOSITIONED UP AND TO LEFT SIDE WITH PILLOW PROPPED TO BACK AND HEELS FLOATED
--- NOTE | 2017-03-03 11:14 | OP ---
PATIENT NAME: KIMBERLEE EDMONDS MEDICAL RECORD: [id number] :43 LOCATION:D.[facility] D.[id number] ADMISSION DATE:02/24/17 SURGEON: ZULEYMA SMITH MD DATE OF OPERATION: 02/28/2017 PREOPERATIVE DIAGNOSES: 1. Pancreatitis. 2. Small bowel obstruction. 3. Acute hypoxic respiratory failure secondary to pneumonia. 4. Acute lung injury/acute respiratory distress syndrome. 5. Pulmonary edema. 6. Congestive heart failure, undifferentiated. POSTOPERATIVE DIAGNOSES: 1. Pancreatitis. 2. Small bowel obstruction. 3. Acute hypoxic respiratory failure secondary to pneumonia. 4. Acute lung injury/acute respiratory distress syndrome. 5. Pulmonary edema. 6. Congestive heart failure, undifferentiated. PROCEDURE: Left subclavian vein triple-lumen central venous line placement. SURGEON: Zuleyma Smith MD REPORT OF PROCEDURE: The patient's left chest was prepped and draped in sterile fashion. A total of 5 cc of 1% lidocaine was infused into the subcutaneous tissues. A needle was used to cannulate the left subclavian vein. The guidewire was advanced with ease. Over this wire, a dilator was placed followed by the triple lumen catheter. The catheter aspirated nonpulsatile dark blood and flushed easily in all 3 ports. This was sutured into place with 3-0 silk ties and dressed appropriately. COMPLICATIONS: None. CONDITION: Stable. ANESTHESIA: Local. BLOOD LOSS: Minimal. Procedure done in the ICU at the bedside. TRANSINT:[id number] Voice Confirmation ID: [id number] DOCUMENT ID: [id number] ZULEYMA SMITH MD at 1114 CC: [id number] DICTATION DATE: 02/28/17 1304 RESEARCH GEOLOGIST: 02/28/17 1339 ADM IN [facility] [address] [place] [address]
--- NOTE | 2017-03-03 12:00 | NUR ---
FAMILY AT BEDSIDE, STATUS UPDATE, LUNCH TRAY TO BEDSIDE, DAUGHTER HELPED WITH SET UP AND FEEDING, 25 % OF MEAL EATEN
--- NOTE | 2017-03-03 15:00 | NUR ---
NO ACUTE CHANGE FROM PREVIOUS ASSESSMENT, VSS, REPOSITIONED TO LEFT SIDE WITH PILLOW PROPPED TO BACK
--- NOTE | 2017-03-03 16:00 | NUR ---
I AND O'S COMPLETED WITHOUT DIFFICULTY
--- NOTE | 2017-03-03 17:15 | NUR ---
CALLED TO ROOM, CONFUSED AND LETHARGIC, BIPAP INITIATED AT 50% BY RT
--- NOTE | 2017-03-03 19:15 | NUR ---
REPORT RECIEVED, SHIFT ASSESSMENT COMPLETE, PT IS CONFUSED, ATTEMPTING TO PULL BIPAP OFF, REORIENTED TO PLACE AND IMPORTANCE OF BIPAP, 92% O2 SAT AT THIS TIME, S1S2, CM-NSR, PATENT F/C WITH CLOUDY UOP, ALL PPP, VSS, WILL CON'T TO MONITOR
--- NOTE | 2017-03-03 21:08 | NUR ---
HS MEDS GIVEN, PT TOLERATED WELL
--- NOTE | 2017-03-03 23:12 | NUR ---
REASSESSMENT COMPLETE PER FLOW SHEET. VSS WILL CONTINUE TO MONITOR
[2017-03-04] VITALS (24 sets, daily range): BP systolic 126–172; BP diastolic 62–100
--- NOTE | 2017-03-04 01:30 | NUR ---
PT RESTING COMFORTABLY, VSS, CALL LIGHT IN REACH
--- NOTE | 2017-03-04 03:30 | NUR ---
REASSESSMENT COMPLETE, NO CHANGES NOTED, PT RESTING AT THIS TIME, WILL CON'T TO MONITOR
[2017-03-04 03:51] LABS: BASOPHILS 0.1 % (0-2); EOSINOPHILS 1.8 % (0-7); HEMOGLOBIN 10.5 g/dL (12-16); IMMATURE GRANULOCYTES 0.9 % (0-5); LYMPHOCYTES 8.1 % (15-50); MCH 31.3 pg (26.0-34.0); MCHC 31.8 g/dL (31.0-37.0); MCV 98.2 fL (80.0-100.0); MEAN PLATELET VOLUME 9.8 fL (7.4-10.4); MONOCYTES 4.1 % (2-11); PLATELET COUNT 240 10x3/uL (130-400); RBC 3.36 10x6/uL (4.00-5.40); RDW 13.1 % (11.5-14.5); WBC 12.8 10x3/uL (4.8-10.8)
[2017-03-04 04:01] LABS: INR 1.26 (0.85-1.17); PROTIME 15.7 SECONDS (11.6-15.0)
[2017-03-04 04:14] LABS: ALBUMIN 1.6 g/dL (3.4-5.0); ALKALINE PHOSPHATASE 26 U/L (46-116); ALT (SGPT) 29 U/L (10-68); CALC OSMOLALITY 283 mosm/kg (275-300); CARBON DIOXIDE 26.2 mmol/L (21.0-32.0); CHLORIDE - SERUM 107 mmol/L (98-107); CHOL - HDL RATIO 2.4 ratio (2.3-4.1); CHOLESTEROL, TOTAL 70 mg/dL (0-200); CREATININE - SERUM 0.7 mg/dL (0.6-1.3); GLUCOSE 107 mg/dL (74-106); HDL CHOLESTEROL 29 mg/dL (32-96); LDL CHOLESTEROL 24 mg/dL (0-100); LDL-HDL RATIO 0.8 ratio (1.5-3.5); MAGNESIUM - SERUM 2.1 mg/dL (1.8-2.4); POTASSIUM - SERUM 3.7 mmol/L (3.5-5.1); PROTEIN - SERUM 5.1 g/dL (6.4-8.2); SODIUM 141 mmol/L (136-145); TRIGLYCERIDE 86 mg/dL (30-200); UREA NITROGEN 21 mg/dL (7-18); eGFR NON AFRICAN AMERICAN 87 mL/min (90-120)
[2017-03-04 04:19] LABS: AMYLASE - SERUM 381 U/L (25-115); LIPASE 1850 U/L (73-393)
--- NOTE | 2017-03-04 05:08 | NUR ---
LG LIQUID BM, COMPLETE BATH AND LINEN CHANGE
--- NOTE | 2017-03-04 07:00 | NUR ---
REC'D REPORT AND RESUMED CARE, AWAKE AND CONFUSED, VSS, OXYMIZER AT 15L IN USE, LEFT SC TL WITH PROCALAMINE AT 50 CC/HR, 1/2NS WITH 20KCL INFUSING AT 50 CC/HR, YATES TO GRAVITY WITH SAGE DRAINAGE, DENIES PAIN, ASSESSMENT COMPLETE PER FLOWSHEET, REPOITIONED UP AND TO LEFT SIDE WITH PILLOW PROPPED TO BACK, HEELS FLOATED, CALL LIGHT IN REACH VOICES NO NEEDS AT THIS TIME
--- NOTE | 2017-03-04 07:45 | NUR ---
BREAKFAST TRAY TO BEDSIDE, REFUSED AT THIS TIME, LEFT FOR FAMILY TO ASSIST
--- NOTE | 2017-03-04 09:30 | NUR ---
AM MEDS GIVEN WITHOUT DIFFICULTY
--- NOTE | 2017-03-04 11:00 | NUR ---
CONTINUES TO HAVE ELEVATED TEMP, COVERS OFF, ROOM COOLED
--- NOTE | 2017-03-04 12:00 | NUR ---
FAMILY AT BEDSIDE, STATUS UPDATED, AWAITING FOR CONFIRMATION FROM DR CHOUDHARY THAT IT IS OK FOR MRI
--- NOTE | 2017-03-04 12:45 | NUR ---
DR CHOUDHARY AT BEDSIDE. EXPLAINED TO FAMILY , NEEDS FOR MRI, THEY VERBALIZED UNDERSTANDING, NO NEEDS AT THIS TIME
--- NOTE | 2017-03-04 15:00 | NUR ---
NO ACUTE CHANGE FROM PREVIOUS ASSESSMENT, DENIES PAIN, ASSESSMENT COMPLETE PER FLOWSHEET, TEMP 101.4, PAGED DR CHOUDHARY
--- NOTE | 2017-03-04 17:30 | NUR ---
650 MG TYLENOL SUPPOSITORY GIVEN, PER ORDER FOR TEMP OF 101.4
--- NOTE | 2017-03-04 17:40 | NUR ---
PT HAS RETNA IMPLANTS. SHE DOES NOT KNOW WHAT KIND OF IMPLANT. PATIENT HAS INFO CARD AT HOME ABOUT MRI SAFETY ON IMPLANT. DAUGHTER IS GOING TO BRING CARD TOMORROW 03/05/17 SO WE CAN SCREEN PATIENT. LACI MACIAS NOTIFIED.
--- NOTE | 2017-03-04 19:25 | NUR ---
PT IN BED WITH EYES OPEN WATCHING TV. VAPOTHERM 35L. LEFT SUBCLAVIAN CENTRAL LINE PATENT WITH DRESSING INTACT CHANGED 03/03/17. RECEIVING PROALIMINE AT 50MLS/HR, 1/2 NS AT 75MLS/HR. PT PLEASANTLY CONFUSED AT TIMES. TEMP 98.5. NO CONCERNS NOTED. CALL LIGHT IN REACH. WILL CONTINUE TO OBSERVE.
--- NOTE | 2017-03-04 21:10 | NUR ---
PT IN BED WITH EYES CLOSED AND CHEST RISING. VAPOTHERM AT 100%. NO S/S OF DISTRESS. EASILY AROUSED TO VERBAL STIMULI. NO CONCERNS NOTED. CALL LIGHT IN REACH. WILL CONTINUE TO OBSERVE.
--- NOTE | 2017-03-04 23:28 | NUR ---
PT IN BED WITH EYES CLOSED AND CHEST RISING. BIPAP ON AT THIS TIME. NO S/S OF DISTRESS NOTED. CALL LIGHT IN REACH. WILL CONTINUE TO OBSERVE.
[2017-03-05] VITALS (24 sets, daily range): BP systolic 118–169; BP diastolic 53–95
--- NOTE | 2017-03-05 00:34 | NUR ---
PT IN BED WITH EYES CLOSED AND CHEST RISING. BIPAP IN USE. NO S/S OF DISTRESS. PT INCONTINENT OF BOWEL WITH MAL/YATES CARE PROVIDED. PAD AND GOWN CHANGED. NO OTHER CONCERNS NOTED. CALL LIGHT IN REACH. WILL CONTINUE TO OBSERVE.
--- NOTE | 2017-03-05 01:10 | NUR ---
PT REMOVING BIPAP AND REFUSES TO KEEP IT ON. PT SWITCH TO VAPOTHERM. NO OTHER CONCERNS NOTED AT THIS TIME. WILL CONTINUE TO OBSERVE.
--- NOTE | 2017-03-05 03:17 | NUR ---
PT IN BED WITH EYES CLOSED AND CHEST RISING. NO S/S OF DISTRESS. TACHEPNEA NOTED. SP02 96%. NO CONCERNS NOTED. CALL LIGHT IN REACH. WILL CONTINUE TO OBSERVE.
[2017-03-05 04:21] LABS: BASOPHILS 0.1 % (0-2); HEMATOCRIT 32.4 % (36.0-48.0); HEMOGLOBIN 10.5 g/dL (12-16); IMMATURE GRANULOCYTES 0.7 % (0-5); LYMPHOCYTES 4.2 % (15-50); MCH 31.1 pg (26.0-34.0); MCHC 32.4 g/dL (31.0-37.0); MEAN PLATELET VOLUME 9.4 fL (7.4-10.4); MONOCYTES 2.9 % (2-11); NEUTROPHILS 91.1 % (40-80); PLATELET COUNT 255 10x3/uL (130-400); RBC 3.38 10x6/uL (4.00-5.40); RDW 12.7 % (11.5-14.5)
[2017-03-05 04:22] LABS: MCV 95.9 fL (80.0-100.0); WBC 17.2 10x3/uL (4.8-10.8)
[2017-03-05 04:30] LABS: ANION GAP 11.5 mmol/L (8-16); CALCIUM 8.1 mg/dL (8.5-10.1); MAGNESIUM - SERUM 2.3 mg/dL (1.8-2.4); POTASSIUM - SERUM 3.5 mmol/L (3.5-5.1)
[2017-03-05 04:32] LABS: CREATININE - SERUM 0.9 mg/dL (0.6-1.3); PHOSPHOROUS 2.4 mg/dL (2.5-4.9)
[2017-03-05 04:36] LABS: ALBUMIN 1.6 g/dL (3.4-5.0); BILIRUBIN - DIRECT 0.25 mg/dL (0.00-0.30); BILIRUBIN - INDIRECT 0.27 mg/dL (0.00-1.00); BILIRUBIN - TOTAL 0.52 mg/dL (0.2-1.3); PROTEIN - SERUM 4.8 g/dL (6.4-8.2)
--- NOTE | 2017-03-05 05:47 | NUR ---
PT IN BED WITH EYES CLOSED AND CHEST RISING. NO CONCERNS NOTED. TEMP 99.0. DAUGHTER HAS VISITED AND JUST LEFT UNIT. WILL CONTINUE TO OBSERVE. CALL LIGHT IN REACH.
--- NOTE | 2017-03-05 10:16 | NUR ---
PATIENT UNABLE TO COOPERATE AND HOLD BREATH. MRCP WAS PERFORMED BUT NONDIAGNOSTIC PER RADIOLOGIST DR. ELLER. DR. ELLER RECOMMENDS REPEATING AT A LATER DATE WHEN A DIAGNOSTIC EXAM CAN BE COMPLETED.
--- NOTE | 2017-03-05 10:49 | NUR ---
NUTRITION F/U SPOKE WITH RE: CONTINUED POOR PO INTAKE. PROCALAMINE @ 50 CC/HR. PT SLEEPING AT THIS TIME. NOTE DIET CHANGE TO INCLUDE THIN LIQUIDS. WILL PROVIDE TRIAL ENSURE WITH LUNCH IN ATTEMPT TO IMPROVE PO INTAKE. RD FOLLOWING
--- NOTE | 2017-03-05 19:15 | NUR ---
ASSESSMENT COMPLETE. S1S2. SINUS TACHYCARDIA SHOWING ON MONITOR. RR SHALLOW; TACHYPNEA NOTED; WHEEZE NOTED ON EXHALE BILATERALLY IN UPPER LOBES; DIMINISHED BILATERALLY IN LOWER LOBES. PERRLA; 4MM BRISK. PT CONFUSED PULLING OFF BIPAP; DESAT TO LOW 80 PERCENTILE RANGE. REORIENTED AND REAPPLIED BIPAP. RADIAL AND PEDAL PULSES PALPATED. BUTTOCKS REDDENED; BLANCHABLE.
--- NOTE | 2017-03-05 22:00 | NUR ---
NO VISITORS OR FAMILY DURING VISITATION.
--- NOTE | 2017-03-05 22:33 | NUR ---
PT REMOVED BIPAP. O2 SATS DECREASED TO 82%. REAPPLIED BIPAP; REEXPLAINED TO PT IMPORTANCE OF KEEPING ON BIPAP.
--- NOTE | 2017-03-05 23:00 | NUR ---
REASSESSMENT COMPLETE. NO ACUTE CHANGES NOTED. WILL CONTINUE TO MONITOR.
--- NOTE | 2017-03-05 23:45 | NUR ---
PT HAD LARGE LIQUID BROWN BM. PT CLEANED. LINENS CHANGED. GOWN CHANGE. YATES CARE COMPLETE.
[2017-03-06] VITALS (25 sets, daily range): BP systolic 109–164; BP diastolic 47–95
--- NOTE | 2017-03-06 00:36 | NUR ---
DESATS TO 84% ON 100% BIPAP. RETURNS SHORTLY TO WNL.
--- NOTE | 2017-03-06 03:00 | NUR ---
REASSESSMENT COMPLETE. NO ACUTE CHANGES FROM PREVIOUS ASSESSMENT. WILL CONTINUE TO MONITOR.
[2017-03-06 03:54] LABS: BASOPHILS 0.1 % (0-2); EOSINOPHILS 1.3 % (0-7); HEMATOCRIT 28.4 % (36.0-48.0); HEMOGLOBIN 9.4 g/dL (12-16); IMMATURE GRANULOCYTES 0.4 % (0-5); LYMPHOCYTES 4.7 % (15-50); MCH 30.9 pg (26.0-34.0); MCHC 33.1 g/dL (31.0-37.0); MCV 93.4 fL (80.0-100.0); MEAN PLATELET VOLUME 9.3 fL (7.4-10.4); MONOCYTES 3.6 % (2-11); NEUTROPHILS 89.9 % (40-80); PLATELET COUNT 254 10x3/uL (130-400); RBC 3.04 10x6/uL (4.00-5.40); RDW 12.6 % (11.5-14.5); WBC 16.5 10x3/uL (4.8-10.8)
--- NOTE | 2017-03-06 04:00 | NUR ---
I/O COLLECTED. LABS DRAWN.
[2017-03-06 04:22] LABS: ALBUMIN 1.3 g/dL (3.4-5.0); ALKALINE PHOSPHATASE 28 U/L (46-116); ALT (SGPT) 40 U/L (10-68); AMYLASE - SERUM 220 U/L (25-115); BILIRUBIN - TOTAL 0.37 mg/dL (0.2-1.3); CALC OSMOLALITY 271 mosm/kg (275-300); CALCIUM 7.6 mg/dL (8.5-10.1); CARBON DIOXIDE 25.9 mmol/L (21.0-32.0); CHLORIDE - SERUM 102 mmol/L (98-107); CREATININE - SERUM 0.6 mg/dL (0.6-1.3); GLUCOSE 100 mg/dL (74-106); LIPASE 1001 U/L (73-393); MAGNESIUM - SERUM 2.3 mg/dL (1.8-2.4); PHOSPHOROUS 2.8 mg/dL (2.5-4.9); POTASSIUM - SERUM 3.4 mmol/L (3.5-5.1); PROTEIN - SERUM 4.8 g/dL (6.4-8.2); SODIUM 136 mmol/L (136-145); UREA NITROGEN 13 mg/dL (7-18); eGFR NON AFRICAN AMERICAN > 90 mL/min (90-120)
--- NOTE | 2017-03-06 05:00 | NUR ---
DAUGHTER AT BEDSIDE. UPDATE GIVEN. QUESTIONS ANSWERED. WILL CONTINUE TO MONITOR.
--- NOTE | 2017-03-06 07:24 | NUR ---
DR. WHITAKER HERE IN TO SEE PATIENT. PATIENT'S SPO2 IS 89%, READJUSTED BIPAP MASK, AND WILL CONTINUE TO MONITOR.
--- NOTE | 2017-03-06 08:29 | NUR ---
Nutrition follow-up: Visited with pts daughter this morning re: concerns about pts food. Daughter upset that pt received a burned grilled cheese sandwich for dinner last evening; and had a picture to prove it. Pt is a vegetarian and is now back on BIPAP mask due to desating when off. Pt is unable to eat at this time. RDN took a picture of burned sandwich and reported it to the [employer] director who is going to speak with the cook. ProcalAmine is infusing @ 50 ml/hr. Pt is not meeting est nutritional needs at this time. RDN recommends PEG tube placement or NGT placement and TF started to meet pts nutritional needs. Recommend Osmolite 1.0 hakan @ 25 ml/hr with increase to goal rate of 50 ml/hr. RDN following.
--- NOTE | 2017-03-06 09:11 | NUR ---
DR. STEWART HERE IN TO SEE PATIENT, NEW ORDER RECEIVED FOR SPUTUM CULTURE. PATIENT SPO2 88-89% RAISED HOB SLIGHTLY AND INCREASED TO 93%. PATIENT IS TACHYPNEIC AT THIS TIME, RESTING WITH EYES CLOSED, CHEST WITH EQUAL EXCURSION NOTED.
--- NOTE | 2017-03-06 12:10 | NUR ---
Patient Name: KIMBERLEE EDMONDS Encounter No: [id number] : 1945 Primary Insurance: [employer] MEDICARE ADV Anticipated DC Date: 02-27-2017 Planned Disposition: Home DCP follow-up note: Patient and family in agreement with discharge plan. No changes to plan. Case management will follow and assist as needed. Agnes Kemp
--- NOTE | 2017-03-06 13:05 | NUR ---
DR. CHOUDHARY IN TO SEE PATIENT AND SPOKE WITH FAMILY. CALL LIGHT WITHIN REACH, BED IN LOW POSITION. PATIENT STATES HER NAUSEA IS BETTER AT THIS TIME. PATIENT IS VERY TACHYPNEIC, AND SHALLOW RESP NOTED. SPO2 91% -92% AT THIS TIME.
--- NOTE | 2017-03-06 14:00 | NUR ---
REC'D REPORT AND RESUMED CARE, BIPAP IN USE SAT 99%, AWAKE AND ALERT, GRIMACES TO TOUCH, DENIES PAIN, VSS, REPOSITIONED UP AND TO BACK WITH HEELS FLOATED...
--- NOTE | 2017-03-06 14:50 | NUR ---
MONITOR ALARMING, HAS PULLED OFF BIPAP AND EAR SENSOR, REORIENTED, BIPAP BACK ON, SAT 88%
--- NOTE | 2017-03-06 16:00 | NUR ---
I AND O'S COMPLETED, FAMILY AT BEDSIDE, STATUS UPDATED VOICES NO NEEDS AT THIS TIME
--- NOTE | 2017-03-06 17:15 | NUR ---
LIVING WILL BROUGHT IN, COPY PLACED ON CHART, MIRACLE AWAITING TO TALK WITH RE: PROGNOSIS AND MAKING DECISIONS ABOUT POC
--- NOTE | 2017-03-06 19:00 | NUR ---
1900: Pt with productive cough at this time. Pt expectorated small amount of thick brown sputum.
--- NOTE | 2017-03-06 19:15 | NUR ---
1914: "Pretty nurses only" removed from communication board.
--- NOTE | 2017-03-06 20:00 | NUR ---
2000: Pt bed changed at this time and overlay mattress applied to bed. Pt repositioned for comfort with extrem off bed. Provided brief removal of Bipap to provide oral care/sips of water. Pt SP02 immediatley decreased and Bipap placed back on with proper seal and SPO2 returned to 91%. Pt c/o pain in LLQ of ABD with palpation.
--- NOTE | 2017-03-06 21:00 | NUR ---
2100: Pt pulling at Bipap mask. Verbal reorientation successful for short periods. Pt grabs at staff while in room and attempts to get OOB. Repositioned pt for comfort at this time. Bed alarm on and audible.
[2017-03-07] VITALS (24 sets, daily range): BP systolic 99–140; BP diastolic 54–99
--- NOTE | 2017-03-07 | NUR ---
0000: Pt resting in bed with eyes open at this time. Pt reading a book. Pt calm at this time. Pt RR 26x with SPO2 97%. Lung sounds unchanged with ausculatation from assessment. Pt MMP and no cyanosis noted.
--- NOTE | 2017-03-07 02:00 | NUR ---
0200: Pt resting in bed with eyes closed at this time. Pt remains on Bipap with RR 26x with SPO2 91-94%. No change in IVF/UOP. Pt remains SR on CM.
--- NOTE | 2017-03-07 04:00 | NUR ---
0400: Daughter here at bedside. Update provided and education done, but family and patient need further teaching. Pt daughter could not re-state provided education.
--- NOTE | 2017-03-07 04:15 | NUR ---
0415: Pt restless in bed and RR increased to 30's with SP02 decreased 86-88%. Calmed patient and education provdided R/T pt condition to pt and family. After 1-2min pt SPo2 90-91%. Pt remains on Bipap at 100% Fio2.
[2017-03-07 05:26] LABS: HEMATOCRIT 31.8 % (36.0-48.0); HEMOGLOBIN 10.4 g/dL (12-16); MCH 30.5 pg (26.0-34.0); MCHC 32.7 g/dL (31.0-37.0); MCV 93.3 fL (80.0-100.0); PLATELET COUNT 380 10x3/uL (130-400); RBC 3.41 10x6/uL (4.00-5.40); RDW 12.6 % (11.5-14.5); WBC 20.6 10x3/uL (4.8-10.8)
[2017-03-07 05:27] LABS: BASOPHILS 1 % (0-2); EOSINOPHILS 2 % (0-7); LYMPHOCYTES 7 % (15-50); MONOCYTES 5 % (2-11); NEUTROPHILS 85 % (40-80)
[2017-03-07 05:28] LABS: PLATELET ESTIMATE NORMAL
[2017-03-07 05:32] LABS: ALBUMIN 1.6 g/dL (3.4-5.0); ALKALINE PHOSPHATASE 35 U/L (46-116); AMYLASE - SERUM 178 U/L (25-115); BILIRUBIN - DIRECT 0.14 mg/dL (0.00-0.30); BILIRUBIN - TOTAL 0.44 mg/dL (0.2-1.3); CALCIUM 8.4 mg/dL (8.5-10.1); CARBON DIOXIDE 27.4 mmol/L (21.0-32.0); CHLORIDE - SERUM 102 mmol/L (98-107); CREATININE - SERUM 0.7 mg/dL (0.6-1.3); GLUCOSE 137 mg/dL (74-106); LIPASE 799 U/L (73-393); MAGNESIUM - SERUM 2.8 mg/dL (1.8-2.4); POTASSIUM - SERUM 3.5 mmol/L (3.5-5.1); PROTEIN - SERUM 5.9 g/dL (6.4-8.2); SODIUM 139 mmol/L (136-145); eGFR NON AFRICAN AMERICAN 87 mL/min (90-120)
[2017-03-07 05:33] LABS: ALT (SGPT) 52 U/L (10-68); CALC OSMOLALITY 283 mosm/kg (275-300); UREA NITROGEN 25 mg/dL (7-18)
--- NOTE | 2017-03-07 07:30 | NUR ---
REC'D REPORT REC'D FROM OUTGOING RN - PT HIGHLY AGGITATED - POX 88% PER CONT CARDIAC MONITORING - INSTRCUTED PT TO TAKE DEEP BREATHS AND NOT TO TALK INORDER TO GET HEALTHY.
--- NOTE | 2017-03-07 08:00 | NUR ---
FAMILY AT BEDSIDE - DISCUSSED PLAN OF CARE W/ AND DTR - POTENTIAL NEED TO PLACE PT ON VENT IF NEEDED. FAMILY IS WILLING TO PLACE PT ON VENT IF MD FEELS IT IS NESSARY - HOWEVER, DTR AND WANTS TO ASK OTHER FAMILY MEMBERS TO COME TO SEE HER PRIOR TO BEING PLACED ON A VENT - EXPLAINED TO FAMILY THE PT IS NOT READY TO GO ON A VENT HOWEVER, IF SHE CONTINUES TO BE DESAT ON POX WITH 100%BIPAP SHE MAY DIGRESS TO NEEDING A VENT.
--- NOTE | 2017-03-07 10:30 | NUR ---
FAMILY AGREED TO PLACE PT ON VENT IF MD ORDERS - DR. CHOUDHARY AT BEDSIDE - EXPLAINED PT IS not READY TO BE ON A VENT AT THIS TIME. BUT HE DID WANT THEM TO BE PREPARED IF NEEDED. FAMILY RELIEVED TO KNOW PT WILL CONTINUE ON 100% BIPAP. SEVERAL FAMILY MEMBERS IN AND OUT OF ROOM
--- NOTE | 2017-03-07 11:00 | NUR ---
ASSESSMENT COMPLETE - NO ACUTE CHANGES - POX CONTINUES TO BE IN MID TO UPPER 90% IF BIPAP MASK IS IN PLACE. PT EARGLY TRYING TO TALK OVER MASK - EDUDDATED PT ON NOT TO TRY TO TALK TO SAVE HER OXYGEN. CPOC
--- NOTE | 2017-03-07 11:23 | NUR ---
BATHED PT - ORAL CARE - CHANGED LINENS AND BED CLOSTHING - BUTT PASTE ON BUTTOCKS AND INNER THIGH. CPOC
--- NOTE | 2017-03-07 15:00 | NUR ---
ASSESSMENT COMPLETE - NOT ACUTE CHAGNES AT THIS TIME - POC
--- NOTE | 2017-03-07 16:00 | NUR ---
PT C/O CHEST PAIN IN CENTER OF CHEST - PAGED DR. GIL - SPOKE TO DR. CONSTANTINO - HERIBERTO FOR EKG AND CARDIAC ENZYMES (BOTH WNL) - CPOC
[2017-03-07 16:54] LABS: CKMB 1.7 U/L (0.0-3.6); CREATINE KINASE 24 UL (21-215)
[2017-03-07 16:55] LABS: POTASSIUM - SERUM 4.1 mmol/L (3.5-5.1); TROPONIN-I 0.016 ng/mL (0.000-0.060)
--- NOTE | 2017-03-07 17:00 | NUR ---
DR. BONE AT BEDSIDE FOR ASSESSMENT - CPOC
--- NOTE | 2017-03-07 18:00 | NUR ---
DR. CONSTANTINO AND DR. THORPE AT [facility] FOR ASSESSEMENTS - FAMILY REQUESTED ANTI-ANXIETY MEDICATION - PT YELLING TRYNG TO GET OOB WITHOUT ASSISTANCE - THROWING ITEMS AT - EXPLAINED THIS RN HAD PAGED dR. CHOUDHARY TO DISCUSS THEIR REQUEST HOWEVER THIS MAY BE DUE TO HYPOXIA AND PT NEEDS TO BE CONSISTANTLY ON BIPAP. FAMILY VERABLIZED UDNERSTANDING
--- NOTE | 2017-03-07 19:00 | NUR ---
1900: Pt at bedside. Pt restless and thrashing in bed. Discussed patient condition with patient and . Pt agrees should go home and rest. Pt repositioned for comfort.
--- NOTE | 2017-03-07 19:00 | NUR ---
PT CALLED DTR WITH HUSBANDS CELL PHONE - DTR CALLED THE UNIT - EXPLAINED PT NEEDS QUIET ENVIRONMENT TO REST - ASKED TO LEAVE UNTIL NEXT VISITING HOURS. AGREED.
--- NOTE | 2017-03-07 19:18 | NUR ---
REPORT GIVEN TO ONCOMING RN - ASKED TO LEAVE DUE TO PT INCREASED AGGITATION
--- NOTE | 2017-03-07 21:00 | NUR ---
2100: Pt resting at this time eyes open and watching TV. Pt remains on Bipap at 100% with RR24x (increased with stimulation) Pt is SR on CM with SBP 120-130's. Rectal tube remains to gravity drainage. Irrigated with 60cc of water at this time.
[2017-03-07 22:26] LABS: CKMB 1.5 U/L (0.0-3.6); CREATINE KINASE 28 UL (21-215); TROPONIN-I < 0.017 ng/mL (0.000-0.060)
[2017-03-08] VITALS (23 sets, daily range): BP systolic 120–152; BP diastolic 55–91
--- NOTE | 2017-03-08 02:45 | NUR ---
0245: Pt yelling out for help. Pt coughing up large amount of sputum. Bipap breifly removed and mask cleaned. Pt linen change done at this time and pt repostioned for comfort. Pt less restless at this time and follows commands. Pt remains on Bipap 100% without change with [id number] (increased with movement to 30's) SPO2 96% at this time.
--- NOTE | 2017-03-08 04:00 | NUR ---
0400: Pt refused PCXR at this time.
[2017-03-08 05:11] LABS: BASOPHILS 0.1 % (0-2); EOSINOPHILS 0 % (0-7); HEMATOCRIT 27.8 % (36.0-48.0); HEMOGLOBIN 8.9 g/dL (12-16); IMMATURE GRANULOCYTES 0.4 % (0-5); LYMPHOCYTES 3.4 % (15-50); MCH 30.1 pg (26.0-34.0); MCV 93.9 fL (80.0-100.0); MEAN PLATELET VOLUME 9.6 fL (7.4-10.4); MONOCYTES 3.1 % (2-11); PLATELET COUNT 470 10x3/uL (130-400); RBC 2.96 10x6/uL (4.00-5.40); RDW 12.7 % (11.5-14.5); WBC 22.3 10x3/uL (4.8-10.8)
[2017-03-08 05:31] LABS: ALBUMIN 1.5 g/dL (3.4-5.0); ALKALINE PHOSPHATASE 28 U/L (46-116); AMYLASE - SERUM 175 U/L (25-115); BILIRUBIN - TOTAL 0.32 mg/dL (0.2-1.3); CALC OSMOLALITY 287 mosm/kg (275-300); CALCIUM 7.8 mg/dL (8.5-10.1); CARBON DIOXIDE 27.8 mmol/L (21.0-32.0); CHLORIDE - SERUM 106 mmol/L (98-107); CREATINE KINASE 36 UL (21-215); CREATININE - SERUM 0.6 mg/dL (0.6-1.3); GLUCOSE 144 mg/dL (74-106); MAGNESIUM - SERUM 2.7 mg/dL (1.8-2.4); PHOSPHOROUS 2.6 mg/dL (2.5-4.9); PROTEIN - SERUM 5.1 g/dL (6.4-8.2); SODIUM 139 mmol/L (136-145); TROPONIN-I 0.017 ng/mL (0.000-0.060); UREA NITROGEN 31 mg/dL (7-18); eGFR NON AFRICAN AMERICAN > 90 mL/min (90-120)
[2017-03-08 05:35] LABS: ALT (SGPT) 70 U/L (10-68)
[2017-03-08 06:14] LABS: ERYTHROCYTE SEDIMENTATION RATE 46 mm/hr (0-30)
--- NOTE | 2017-03-08 11:06 | NUR ---
Nutrition consult: Receivined consult to begin TPN from Dr. Amanda. Chart reviewed. TPN orders sent to pharmacy. D24W,4.25% AA @ 40 ml/hr with 20% 250 ml intralipids Q72 hours. Thank you for the consult. RDN following.
--- NOTE | 2017-03-08 14:55 | NUR ---
1430 SPEECH THERAPIST IN UNIT TO EVALUATE PT, STATES PT CAN HAVE MECHANICAL SOFT NECTAR THICK DIET. TPN AND LIPIDS D/C'D.
--- NOTE | 2017-03-08 19:45 | NUR ---
RECEIVED CARE OF PT, ASSESSMENT PER FLOWSHEET. PT DISORIENTED TO SITUATION, AWAKE AND ALERT SITTING UP IN BED, NOTED TO BE TACHYPNEIC AND BECOMES SOB WHEN TALKING, ENCOURAGED PT TO REST, ON VAPOTHERM, O2 SAT AT 93% ON MONITOR, HR SR, PPP, POSITIONED FOR COMFORT IN BED, NECTAR-THICKENED WATER PROVIDED PER REQUEST.
--- NOTE | 2017-03-08 21:50 | NUR ---
NO VISITORS PRESENT AT THIS TIME, PUDDING AND APPLESAUCE PROVIDED PER PT REQUEST, CONSUMED 100%, NO DIFFICULTIES NOTED WITH SWALLOWING, CONT POC.
--- NOTE | 2017-03-08 23:30 | NUR ---
REASSESSMENT PER FLOWSHEET, NO ACUTE CHANGES NOTED AT THIS TIME. PT POSITIONED FOR COMFORT, CALL LIGHT IN REACH, BED LOW.
[2017-03-09] VITALS (24 sets, daily range): BP systolic 134–172; BP diastolic 62–95
--- NOTE | 2017-03-09 02:00 | NUR ---
DECREASED O2 SAT NOTED ON VAPOTHERM, ENCOURAGED PT TO DEEP BREATHE-NO INCREASED TO POX, PLACED ON BIPAP AT THIS TIME, O2 SAT READING 95% WITH GOOD WAVE FORM NOTED.
--- NOTE | 2017-03-09 03:41 | NUR ---
PT DAUGHTER CALLED, PASSWORD PROVIDED, UPDATE GIVEN.
--- NOTE | 2017-03-09 05:27 | NUR ---
PT DAUGHTER CALLED, PASSWORD PROVIDED, UPDATE GIVEN, ALL QUESTIONS ANSWERED.
[2017-03-09 05:56] LABS: BASOPHILS 0.1 % (0-2); EOSINOPHILS 0 % (0-7); HEMATOCRIT 30.8 % (36.0-48.0); IMMATURE GRANULOCYTES 0.4 % (0-5); LYMPHOCYTES 3.9 % (15-50); MCH 30.5 pg (26.0-34.0); MCHC 32.5 g/dL (31.0-37.0); MCV 93.9 fL (80.0-100.0); MEAN PLATELET VOLUME 9.2 fL (7.4-10.4); MONOCYTES 3.9 % (2-11); NEUTROPHILS 91.7 % (40-80); PLATELET COUNT 543 10x3/uL (130-400); RBC 3.28 10x6/uL (4.00-5.40); RDW 12.5 % (11.5-14.5); WBC 18.2 10x3/uL (4.8-10.8)
[2017-03-09 06:21] LABS: ALBUMIN 1.7 g/dL (3.4-5.0); ALKALINE PHOSPHATASE 34 U/L (46-116); AMYLASE - SERUM 162 U/L (25-115); BILIRUBIN - TOTAL 0.31 mg/dL (0.2-1.3); CALC OSMOLALITY 283 mosm/kg (275-300); CALCIUM 7.9 mg/dL (8.5-10.1); CARBON DIOXIDE 26.3 mmol/L (21.0-32.0); CHLORIDE - SERUM 105 mmol/L (98-107); CREATININE - SERUM 0.6 mg/dL (0.6-1.3); GLUCOSE 133 mg/dL (74-106); LIPASE 800 U/L (73-393); MAGNESIUM - SERUM 2.7 mg/dL (1.8-2.4); PHOSPHOROUS 2.3 mg/dL (2.5-4.9); POTASSIUM - SERUM 3.8 mmol/L (3.5-5.1); PRE-ALBUMIN 12.5 mg/dL (18.0-35.7); PROTEIN - SERUM 5.4 g/dL (6.4-8.2); SODIUM 139 mmol/L (136-145); UREA NITROGEN 25 mg/dL (7-18); eGFR NON AFRICAN AMERICAN > 90 mL/min (90-120)
[2017-03-09 06:22] LABS: ALT (SGPT) 110 U/L (10-68)
--- NOTE | 2017-03-09 09:29 | NUR ---
PT ALERT AND ORIENTED BUT CONFUSED TO SITUATION, VSS, DENIES PAIN, ON BIPAP, LEFT SUBCLAVIAN CVL WITH PROCALAMINE 50 [id number] 50, YATES DRAINING YELLOW URINE, REPOSITIONED, WILL CONTINUE TO MONITOR
--- NOTE | 2017-03-09 09:31 | NUR ---
PT TOLERATED AM MEDS WELL WHEM CRUSHED, WHEN BIPAP REMOVED FOR MEDS PT SPO2 DROPPING FROM 96 TO 79 AND BIPAP REPLACED, FAMILY WANTING BIPAP REMOVED FOR PT TO DRINK WATER AND SPEAK CLEARLY, DISCUSSED WITH THEM THAT WITH O2 LEVELS DROPPING THAT LOW WE CANNOT REMOVE BIPAP THAT IS VERY LOW, LITTLE UNDERSTANDING BY DAUGHTER AND PTS , TREATED PHOS, WILL CONTINUE TO MONITOR
--- NOTE | 2017-03-09 10:23 | NUR ---
Nutrition follow-up: TPN discontinued the same day it was ordered due to pt passed swallow eval. ProcalAmine PPN continues to infuse at 50 ml/hr. Labs reviewed Pt with mechanical soft with thick liquids diet order. PO intake remains very poor due to breathing issues. RDN following.
--- NOTE | 2017-03-09 11:22 | NUR ---
PT WITH BED BATH AND LINEN CHANGE, VSS, DENIES PAIN, CONTINUES ON BIPAP, TOLERATING THICKENED LIQUIDS WELL
--- NOTE | 2017-03-09 13:19 | NUR ---
PT TOLERATED LUNCH WELL, ABLE TO KEEP SPO2 ABOVE 88 IF BIPAP HELD OVER FACE WHILE EATING, DID NOT TOLERATE TRANSFERRING TO VAPOTHERM, SPO2 DROPPING INTO 70S
--- NOTE | 2017-03-09 15:00 | NUR ---
PT REPOSITIONED, VSS, DENIES PAIN, CONTINUES ON BIPAP, WILL CONTINUE TO MONITOR
--- NOTE | 2017-03-09 17:00 | NUR ---
FAMILY AT BEDSIDE FOR VISITATION, TOTAL BED BATH AND LINEN CHANGE PROVIDED, WATCHED BY DAUGHTER WHO HAD NO COMPLAINTS OF CARE, PT AROUSES FOR DRINK OF WATER BUT COUGHS WHEN DRINKING, DID NOT FEED DINNER TRAY SHE IS LETHARGIC AT THIS TIME, WILL CONTIN UE TO MONITOR
--- NOTE | 2017-03-09 19:30 | NUR ---
REPORT RECEIVED. SHIFT ASSESSMENT COMPLETED PER FLOW SHEET. PT LAYING IN BED RESTING. WOKE UP TO SPEECH. SPEECH IS CLEAR. CONFUSED TO TIME AND SITUATION, REORIENTED PT, SHE VERBALIZED UNDERSTANDING. PT OBEYS COMMANDS AND IS ABLE TO MOVE UPPER AND LOWER EXTREMITIES. S1S2 PRESENT. TELEMETRY MONITORING HR 75. BREATH SOUNDS CLEAR RUL, RML, AND KAYLA, DIMINISHED IN RLL AND LLL. PT ON BIPAP AT 90%. BS ACTIVE X4. YATES CATHETER TO GRAVITY, SECURED DRAINING CLEAR YELLOW URINE. REDDENED AREA TO BUTTOCK. BRUISES TO ARMS. LT SUBCLAVIAN CVL PATENT, DRESSING CDI. SCD'S ON. SEE FLOW SHEET FOR COMPLETE ASSESSMENT.
--- NOTE | 2017-03-09 20:17 | NUR ---
PT LAYING IN BED. MEDS ADMINISTERED PER EMAR, SEE FOR DETAILS. PT CALM AND COOPERATIVE AT THIS TIME.
--- NOTE | 2017-03-09 21:05 | NUR ---
DAUGHTER ON PHONE, SECURITY CODE OBTAINED. QUESTIONS ANSWERED. SAID SHE WILL BE HERE IN THE MORNING. PT LAYING IN BED WATCHING TV. WILL CONTINUE TO MONITOR.
--- NOTE | 2017-03-09 23:00 | NUR ---
REASSESSMENT COMPLETED PER FLOWSHEET, NO ACUTE CHANGES NOTED, SEE FLOWSHEET FOR DETAILS. REPOSITIONED FOR COMFORT. WILL CONTINUE TO MONITOR.
[2017-03-10] VITALS (13 sets, daily range): BP systolic 133–164; BP diastolic 64–82
--- NOTE | 2017-03-10 01:00 | NUR ---
PT LAYING IN BED RESTING, EYES CLOSED. DENIES NEEDS. WILL CONTINUE TO MONITOR. CALL LIGHT WITHIN REACH. BED IN LOWEST POSITION.
--- NOTE | 2017-03-10 03:25 | NUR ---
REASSESSMENT COMPLETED PER FLOW SHEET, NO ACUTE CHANGES NOTED, SEE FLOW SHEET FOR DETAILS. NO ACUTE DISTRESS NOTED AT THIS TIME. WILL CONTINUE TO MONITOR. CALL LIGHT WITHIN REACH. BED IN LOWEST POSITION.
--- NOTE | 2017-03-10 04:00 | NUR ---
PT LAYING IN BED, DAUGHTER AT BEDSIDE. REPORT GIVEN. QUESTIONS ANSWERED. WILL CONTINUE TO MONITOR.
--- NOTE | 2017-03-10 05:45 | NUR ---
LAYING IN BED RESTING COMFORTABLY, DENIES NEEDS. NO VISITORS AT THIS TIME. WILL COTINUE TO MONITOR.
[2017-03-10 05:46] LABS: BASOPHILS 0.1 % (0-2); EOSINOPHILS 0 % (0-7); HEMATOCRIT 28.6 % (36.0-48.0); HEMOGLOBIN 9.4 g/dL (12-16); IMMATURE GRANULOCYTES 0.6 % (0-5); LYMPHOCYTES 6.4 % (15-50); MCH 30.8 pg (26.0-34.0); MCHC 32.9 g/dL (31.0-37.0); MCV 93.8 fL (80.0-100.0); MEAN PLATELET VOLUME 9.1 fL (7.4-10.4); MONOCYTES 4.5 % (2-11); NEUTROPHILS 88.4 % (40-80); PLATELET COUNT 475 10x3/uL (130-400); RBC 3.05 10x6/uL (4.00-5.40); RDW 12.5 % (11.5-14.5); WBC 14.4 10x3/uL (4.8-10.8)
[2017-03-10 06:11] LABS: ALBUMIN 1.5 g/dL (3.4-5.0); ALKALINE PHOSPHATASE 28 U/L (46-116); ALT (SGPT) 91 U/L (10-68); AMYLASE - SERUM 149 U/L (25-115); CALC OSMOLALITY 282 mosm/kg (275-300); CALCIUM 7.8 mg/dL (8.5-10.1); CARBON DIOXIDE 28.7 mmol/L (21.0-32.0); CHLORIDE - SERUM 104 mmol/L (98-107); CREATININE - SERUM 0.7 mg/dL (0.6-1.3); GLUCOSE 129 mg/dL (74-106); LIPASE 699 U/L (73-393); MAGNESIUM - SERUM 2.6 mg/dL (1.8-2.4); POTASSIUM - SERUM 3.9 mmol/L (3.5-5.1); PROTEIN - SERUM 4.8 g/dL (6.4-8.2); SODIUM 139 mmol/L (136-145); UREA NITROGEN 22 mg/dL (7-18); eGFR NON AFRICAN AMERICAN 87 mL/min (90-120)
[2017-03-10 06:12] LABS: PHOSPHOROUS 2.9 mg/dL (2.5-4.9)
--- NOTE | 2017-03-10 07:15 | NUR ---
PT WITH EYES CLOSED. OPENS EYES TO SPEECH. NODS TO ANSWER QUESTIONS. SHE REPORTS 0/10 PAIN AT THIS TIME. SHE ON ON BIPAP AT 90% WITH 02 SAT OF 97%. BP PRESSURE IS ELEVATED 164/75 (112), HR 64 SYNUS RHYTHM, RR 25 BREATHS/MIN. S1S2 AUDIBLE. RADIAL PULSES 2+ EQUAL BILATERALLY. PEDAL PULSES 2+ EQUAL BILATERALLY. LUNG SOUNDS CLEAR THROUGH OUT. NO COUGH NOTED AT THIS TIME. BS SOUNDS HYPERACTIVE X 4. ABDOMEN IS NONTENDER. YATES DEPENDENT WITH CLEAR, YELLOW URINE NOTED. SHE HAS A L-SUBCLAVIAN CVL WITH NS+20KCL INFUSING AT 50ML/HR. PROCALAMINE INFUSING AT 50ML/HR. SHE IS ON AN OVERLAY MATTRESS. REDNESS ON PERINEAL AREA. COMPLETE ASSEMSENT CHARTED IN ASSESSMENT SECTION. BED LOW POSITION, CALL LIGHT IN REACH. NO NEEDS AT THIS TIME.
--- NOTE | 2017-03-10 09:01 | NUR ---
GAVE MORNING MEDS CRUSHED WITH THICKEN LIQUIDS. PT TOOK BUT HAD PROBLEMS SWALLOWING THEM. SHE SPIT THEM BACK UP. NOTIFID DR. STEWART THAT PT IS HAVING DIFFICULTY SWALLOWING. PT IS OFF BIPAP. ON VAPOTHERM 100%. PT 02 SAT AT 93%. HOB AT 60 DEGREES.
[2017-03-10 09:17] LABS: ANA REFLEX - DIRECT Negative (Negative)
--- NOTE | 2017-03-10 09:40 | PN ---
PATIENT:KIMBERLEE EDMONDS MEDICAL RECORD: [id number] LOCATION:[facility] ADMISSION DATE: 02/24/17 PROGRESS NOTE DATE OF SERVICE: 03/07/2017 ADDENDUM CHIEF COMPLAINT: None. SUBJECTIVE: The patient is now on BiPAP. She has low saturations when off BiPAP. She is not having any abdominal pain. Her abdomen is nontender. Nothing aggravates. Nothing alleviates. There is a question of some hemoptysis earlier this morning. This is a progress note addendum. For the typed portion of the progress note, please see the chart. This would include past medical and surgical history, current medications, allergies, social history as well as family history. REVIEW OF SYSTEMS: Difficult to obtain from the patient as she is on BiPAP currently. She is able to nod and answer questions that way. PHYSICAL EXAMINATION: GENERAL: The patient appears acutely ill. Also appears chronically ill. The patient does not appear chronically ill. The entire physical examination was performed in the presence of a female nurse. VITAL SIGNS: Reviewed. EARS: External ears appear normal. EYES: Extraocular movements are intact. NECK: Trachea is midline. CHEST: No intercostal retractions. PULMONARY: Moderately labored, no stridor. She is on BiPAP. ABDOMEN: Nontender. No peritonitis to percussion. EXTREMITIES: No peripheral cyanosis. INTEGUMENT: There is an intertriginous rash. BACK: Mild thoracic kyphosis is present. LYMPHATIC: No lymphangitic streaking of the exposed extremities. IMPRESSION: 1. Ventilatory failure. 2. Questionable hemoptysis. 3. Ileus. PLAN: Continue n.p.o. status. TRANSINT:[id number] Voice Confirmation ID: [id number] DOCUMENT ID: [id number] PROGRESS NOTE [id number] KIMBERLEE EDMONDS CHELSI MAGAÑA MD at 0940 CC: [id number] DICTATION DATE: 03/07/17 1543 WATCH ENGINE OPERATOR: 03/07/17 1832 ADM IN [place] [id number] [place] [address]
--- NOTE | 2017-03-10 09:40 | PN ---
PATIENT:KIMBERLEE EDMONDS MEDICAL RECORD: [id number] LOCATION:[facility]230 ADMISSION DATE: 02/24/17 PROGRESS NOTE DATE OF SERVICE: 03/08/2017 PROGRESS NOTE ADDENDUM CHIEF COMPLAINT: Confused. The patient is confused. She is now off BiPAP. She is not having any nausea. No abdominal pain. No abdominal tenderness. Nothing aggravates. Nothing alleviates. For the typed portion of the progress note, please see the chart. This would include past medical and surgical history, current medications, allergies, and social history as well as family history. REVIEW OF SYSTEMS: Unreliable due to the patient's confusion. PHYSICAL EXAMINATION: GENERAL: The patient does not appear acutely ill. She does appear chronically ill. The entire physical examination was performed in the presence of a female nurse. VITAL SIGNS: Reviewed. EARS: External ears appear normal. EYES: Extraocular movements are intact. NECK: Trachea is midline. CHEST: No intercostal retractions. PULMONARY: Nonlabored. No stridor. ABDOMEN: Nontender. EXTREMITIES: No peripheral cyanosis. INTEGUMENT: No rash. PSYCHIATRIC: Anxious affect. NEUROLOGIC: Confused. BACK: Mild thoracic kyphosis is noted. LYMPHATIC: No lymphangitic streaking of the exposed extremities. IMPRESSION: 1. Confusion. 2. Resolving pancreatitis. PLAN: Dr. Hernandez returns tomorrow. TRANSINT:[id number] Voice Confirmation ID: [id number] DOCUMENT ID: [id number] PROGRESS NOTE [id number] KIMBERLEE EDMONDS CHELSI MAGAÑA MD at 0940 CC: [id number] DICTATION DATE: 03/09/17 1534 CREATIVE ART DIRECTOR: 03/09/17 1813 ADM IN [facility] [address] [place] [address]
--- NOTE | 2017-03-10 09:42 | NUR ---
PT HAD SMALL LIQUID BM. PT ABLE TO TURN TO SIDES ON HER OWN. PERICARE PROVIDED. PARTIAL LINEN CHANGE PROVIDED. PT DENIES OTHER NEEDS AT THIS TIME. WILL CONTINUE TO MONITOR.
--- NOTE | 2017-03-10 10:41 | NUR ---
Patient Name: KIMBERLEE EDMONDS Admission Status: ER Accout number: [id number] Admission Date: 02-24-2017 : 1945 Admission Diagnosis:ACUTE PANCREATITIS WITHOUT NECROSIS OR INFECTION, UNSP Attending: PLACIDO STEWART Current LOS: 14 Anticipated DC Date: 02-27-2017 Planned Disposition: Hospice Medical Facility Primary Insurance: [employer] ADV Discharge Planning Comments: CM met with spouse & daughter at bedside. Discussed POC & prognosis. Answered their questions regarding hospice options. They request a referral be made to [facility] for [facility]. Referral faxed and called to Ashely Charlton with [facility]. Waiting determination. CM will follow. Tool Grinder Set Up Operator Gear: Agnes Kemp
--- NOTE | 2017-03-10 12:19 | NUR ---
SMALL BROWN LIQUID BM NOTED. PERINEAL CARE PROVIDED. PERIAREA HAD REDNESS. YATES CARE PROVIDE. NO OTHER NEEDS AT THIS TIME.
--- NOTE | 2017-03-10 14:31 | NUR ---
PT DISCHARGED TO HOSPICE. DISCHARGE PAPERS PRINTED.
[2017-03-11 14:22] LABS: ANCA - ANTIMYELOPEROXIDASE <9.0 U/mL (0.0-9.0); ANCA - ANTIPROTEINASE 3 <3.5 U/mL (0.0-3.5); ANCA - ATYPICAL <1:20 titer (Neg:<1:20); ANCA - CYTOPLASMIC <1:20 titer (Neg:<1:20); ANCA - PERINUCLEAR <1:20 titer (Neg:<1:20)
--- NOTE | 2017-03-16 09:15 | EC ---
PATIENT:KIMBERLEE EDMONDS DATE OF SERVICE: 02/24/17 SEX: F MEDICAL RECORD: [id number] DATE OF : 43 LOCATION:[facility] D230 AGE OF PATIENT: 71 ADMISSION DATE: 02/24/17 REFERRING PHYSICIAN: INTERPRETING PHYSICIAN: SHAHANA MOORE MD ECHOCARDIOGRAM REPORT ECHO CHARGES 4 ECHO COMPLETE CLINICAL DIAGNOSIS: CHF/ELEVATED BNP ECHOCARDIOGRAPHIC MEASUREMENTS (adult normal given) AC root (d.<3.7cm) 2.6 cm LV Septum d (<1.2 cm> 1.4 cm Valve Excursion 1.2 cm LV Septum (systole) 1.6 cm Left Atria (s.<4.0cm> 4.4 cm LVPW d(<1.2cm) 1.4 cm RV (d.<2.3cm) 3.5 cm LVPW (sytole) 1.5 cm LV diastole(<5.6CM) 4.0 cm MV E-F(>70mm/sec) cm LV systole 2.5 cm LVOT Diameter 1.6 cm MV exc.(>10mm) cm Est.ejection fraction (50-75%) % Pericardial Effusion N DOPPLER: LVIT cm/sec A 114 cm/sec E 98.0 cm/sec LA cm/sec RVSP 21 mmHg LVOT 101 cm/sec AOP1/2T m/s Asc. Ao 123 cm/sec RVOT cm/sec RA cm/sec PA cm/sec AV Gradient Peak 6.07 mmHg AV Mean 3.57 mmHg AV Area 1.8 cm MV Gradient Peak 5.60 mmHg MV Mean 1.73 mmHg MV Area cm COMMENTS: Elect Equip Maint Eng: Danilo JAY Agile Business Analyst: 4 Dr. Moore TAPE# PACS DATE OF SERVICE: 02/26/2017 PROCEDURE: Transthoracic echocardiogram. FINDINGS: 1. The left ventricle has mild concentric left ventricular hypertrophy and ejection fraction 60% and flow characteristics indicating diastolic dysfunction. 2. The left atrium has mild dilatation. 3. The mitral valve has mild mitral regurgitation. The tricuspid valve has mild tricuspid regurgitation. Pericardium is grossly normal. ECHOCARDIOGRAM REPORT [id number] KIMBERLEE EDMONDS 4. The right atrium and the right ventricle are mildly dilated. CONCLUSION: This is a difficult study, visually it is difficult to see, but grossly appears fairly normal with some evidence of hypertensive heart disease with the preserved to hyperdynamic LV systolic function. TRANSINT:[id number] Voice Confirmation ID: [id number] DOCUMENT ID: [id number] 03/09/2017 Edited to correct date of service, dmm. SHAHANA MOORE MD at 0915 CC: [id number] DICTATION DATE: 03/03/17 1142 CAST ASSOCIATE: 03/03/17 1212 DIS IN 03/10/17 [id number] [place] [address]
--- NOTE | 2017-04-16 08:24 | DS ---
PATIENT:KIMBERLEE EDMONDS :43 MEDICAL RECORD: [id number] DISCHARGE SUMMARY ADMISSION DATE: 02/24/17 DISCHARGE DATE: 03/10/17 DATE OF ADMISSION: 02/24/2017 DATE OF DISCHARGE: 03/10/2017 ADMITTING PHYSICIAN: Placido Hernandez M.D. (JJ) DISCHARGE PHYSICIAN: Placido Hernandez M.D. (JJ) ADMITTING DIAGNOSES: Pancreatitis, pneumonia, heart failure. HOSPITAL COURSE: The patient was admitted to the hospital for pancreatitis and bowel obstruction. She was treated with IV fluid resuscitation, serial lab monitoring. An NG tube was placed for low intermittent wall suction for bowel decompression. MRCP was done, which showed no biliary obstruction. Serial abdominal exams and x-rays were performed until resolution of the small-bowel obstruction. At which time, the patient received tube feeds. The patient developed pneumonia during hospitalization. A living will was presented during her admission and the patient was discharged to hospice. DISCHARGE MEDICATIONS: Please see electronic medical record. TRANSINT:[id number] Voice Confirmation ID: [id number] DOCUMENT ID: [id number] PLACIDO HERNANDEZ MD at 0824 CC: [id number] DICTATION DATE: 04/15/17 1546 WILDLIFE CONTROL OPERATOR: 04/16/17 0457 DIS IN 03/10/17 [id number] [place] [address]
== END 2017-03-10 14:33 | disposition hospice, inpatient (51) | DRG 438 ==
LOC: D.ER 00:11 → D.ICU 04:12 → D.MS 04:12 → D.ICU 02-26 09:58
PROVIDERS: Emergency Medicine; Family Medicine; Internal Medicine Gastroenterology; Internal Medicine Pulmonary Disease; ADMIT Surgery
PROC: 5A09457 Assistance with Respiratory Ventilation, 24-96 Consecutive Hours, Continuous Positive Airway Pressure (ICD-10-PCS; principal; 2017-02-26)
PROC: 05H633Z Insertion of Infusion Device into Left Subclavian Vein, Percutaneous Approach (ICD-10-PCS; 2017-02-28)
DX: K85.90 Acute pancreatitis without necrosis or infection, unspecified (principal); J96.01 Acute respiratory failure with hypoxia; J18.9 Pneumonia, unspecified organism; M86.662 Other chronic osteomyelitis, left tibia and fibula; J80 Acute respiratory distress syndrome; K56.699 Other intestinal obstruction unspecified as to partial versus complete obstruction; E87.0 Hyperosmolality and hypernatremia; E86.0 Dehydration; Z66 Do not resuscitate; R55 Syncope and collapse; Z91.041 Radiographic dye allergy status; R00.1 Bradycardia, unspecified; G40.A09 Absence epileptic syndrome, not intractable, without status epilepticus; I50.9 Heart failure, unspecified; I08.1 Rheumatic disorders of both mitral and tricuspid valves; E87.6 Hypokalemia; D64.9 Anemia, unspecified; R19.7 Diarrhea, unspecified; R53.81 Other malaise

== ENCOUNTER 2017-03-10 13:15 | Inpatient (IN) | payer OTHER ==
[~2017-03-10] VITALS: Ht 160 cm; Wt 76.1 kg
[2017-03-10 14:10] VITALS: BP 146/68; Ht 160 cm; Wt 76.1 kg
--- NOTE | 2017-03-10 16:39 | NUR ---
MORPHINE MONUMENT LETTERER INITIATED AT 0.5MG/HR. FAMILY IN ROOM. PT HAS TRANSFER ORDERS TO ROOM 2134.
--- NOTE | 2017-03-10 17:19 | NUR ---
REPORT GIVE TO HALEY AGUERO.
[2017-03-10 17:29] VITALS: BP 154/75
--- NOTE | 2017-03-10 17:45 | NUR ---
PT ARRIVED TO ROOM WITH ICU STAFF AND FAMILY MEMBERS AT BEDSIDE. PT IS A&O. PT HAS A PRODUCTIVE COUGH. PT IS ON 15L O2 VIA OXIMIZER. ATTENDANT LODGING FACILITIES MORPHINE IS INFUSING AMD NS AT 5CC/HR. BP 150/67. PULSE 76. POX 80 ON 15L O2 VIA OX. RESP 22. SUCTION ON AND WORKING AT BEDSIDE. CVL TO LEFT SUBCLAVE. SCAPOLAMINE PATCH BEHIND LEFT EAR DATED FOR 03/10. 1ST STEP OVERLAY. SCD ARE ON. NO NEEDS AT THIS TIEM. WILL CONTINUE TO MONITOR
--- NOTE | 2017-03-11 00:02 | NUR ---
TITLE ATTORNEY AT BED SIDE TO OBTAIN VITALS, WILL CONT TO MONITOR.
[2017-03-11 04:39] VITALS: BP 151/67
--- NOTE | 2017-03-11 08:21 | NUR ---
AM ROUNDS - PT IN BED AND APPEARS TO BE SLEEPING AT THIS TIME WITH EQUAL AND NON LABORED BREATHING. 15L O2 VIA OXIMIZER. LEFT SUBCLAVE NS AT 5CC/HR. MORPHINE QA CONSULTANT. PT IS A DNR ON HOSPICE WITH [facility]. YATES. AT BEDSIDE. 1ST STEP OVERLAY. SCD. BED AT LOWEST POSITION. CALL HOBSON IN USE/REACH. SIDE RAILS UP X2. WILL CONTINUE TO MONITOR
[2017-03-11 08:24] VITALS: BP 138/54
--- NOTE | 2017-03-11 11:04 | NUR ---
Nutrition Note: Chart reviewed. Pt admitted to inpatient hospice care. Donnell provide regular diet with honey thick liquids. RD available if needed.
--- NOTE | 2017-03-11 14:54 | NUR ---
COLLEGE TUTOR NEW ORDER CHANGED TO 1MG/HR CONT. WILL CONTINUE TO MONITOR
--- NOTE | 2017-03-11 17:26 | NUR ---
PT IN BED AND APPEARS TO BE REASTING WITH FAMILY AT BEDSIDE. NO NEEDS AT THIS TIME. WILL CONTINUE TO MONITOR
[2017-03-11 20:00] VITALS: BP 168/63
--- NOTE | 2017-03-11 20:54 | NUR ---
PATIENT HAS O2 OF 73 AND IS UNRESPONSIVE. I CALLED HER DAUGHTER AND SHE IS ON HER WAY, I ALSO NOTIFIED [facility] AND SPOKE WITH DAWN AGUERO FROM HOSPICE AND SHE IS COMING TO EVAL THE PATIENT.
--- NOTE | 2017-03-12 00:10 | NUR ---
PATIENT AT 2200. HOSPICE AND FAMILY WERE HERE AT THE TIME, WAS PRONOUNCED AT 2330. [facility] WAS NOTIFED.
--- NOTE | 2017-03-12 01:02 | NUR ---
HOME HERE TO SEO ASSISTANT PATIENT.
== END 2017-03-11 23:30 | DRG 951 ==
LOC: D.ICU 13:15 → D.M2 14:39 → D.ICU 14:39 → D.M2 17:40
PROVIDERS: ADMIT Legal Medicine
DX: Z51.5 Encounter for palliative care (principal)